=== PATIENT | female | born 1935 | race Caucasian/White ===

== ENCOUNTER 2016-06-18 20:24 | Emergency (ER) | payer MEDICARE, OTHER ==
[~2016-06-18] VITALS: Ht 162.6 cm; Wt 63.5 kg
[~2016-06-18 20:24] MED LIST: AZEL205.2 IN; BENZ100C2 PO; ESTR10TA PO; EZET10TA3 PO; INSU100I13 SQ; INSU100I17 SQ; LEVALBUTER1.25 MG/3 INH; LEVO75TA5 PO; LOSA50TA6 PO; PANT40TA5 PO; POTA10TA12 PO; UMEC1DIS INH; URSO300C3 PO
--- NOTE | 2016-06-18 21:10 | PHYS DOC ---
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 No loss of consciousness. She did have bleeding out of her nose and from the injury on her nose. She does not take a blood thinner. The patient is on oxygen chronically at home for lung disease. She did not have syncope, she just had a mechanical fall. She has no other complaints at this time. Review of Systems Review of Systems Constitutional: Denies fever or chills [] Eyes: Denies change in visual acuity, redness, or eye pain [] HENT: Injury to nose as in history of present illness Respiratory: Chronically oxygen dependent, no complaints today Cardiovascular: Denies chest pain GI: Denies abdominal pain, nausea, vomiting, bloody stools or diarrhea [] : Denies dysuria or hematuria [] Musculoskeletal: Complains of pain to both knees and left elbow from the fall Integument: Denies rash or skin lesions [] Neurologic: Denies headache, focal weakness or sensory changes [] Allergies Allergies Allergies Coded Allergies Type Severity Reaction Last Updated Verified Corticosteroids (Glucocorticoids) Allergy Intermediate HAND SWELLING 09/21/15 Yes Penicillins Allergy Intermediate 09/18/15 Yes Llyvcoe-Log-Wnw Reductase Inhibitor Allergy Intermediate muscle aches 09/18/15 Yes Sulfa (Sulfonamide Antibiotics) Allergy Intermediate 09/18/15 Yes Tetracyclines Allergy Intermediate 09/18/15 Yes amitriptyline Allergy Intermediate 09/18/15 Yes benzonatate Allergy Intermediate 09/18/15 Yes codeine Allergy Intermediate liver 09/18/15 Yes diazepam Allergy Intermediate 09/18/15 Yes hydrochlorothiazide Allergy Intermediate 09/18/15 Yes iodine Allergy Intermediate 09/18/15 Yes meperidine Allergy Intermediate 09/18/15 Yes oxycodone Allergy Intermediate 09/18/15 Yes prednisone Allergy Intermediate HANDS, FEET SWELLING 09/18/15 Yes propoxyphene Allergy Intermediate 09/18/15 Yes triamterene Allergy Intermediate 09/18/15 Yes acetaminophen Adverse Reaction Intermediate 09/18/15 Yes hydrocodone Adverse Reaction Intermediate hallucinations 09/18/15 Yes levofloxacin Adverse Reaction Intermediate dizzy, stomach ache 09/18/15 Yes lisinopril Adverse Reaction Intermediate COUGH 09/18/15 Yes moxifloxacin Adverse Reaction Intermediate 09/18/15 Yes naproxen Adverse Reaction Intermediate liver 09/18/15 Yes prochlorperazine Adverse Reaction Intermediate hallucination 09/18/15 Yes Physical Exam Physical Exam Constitutional: Well developed, well nourished, no acute distress, non-toxic appearance. Alert, mentating normally. HENT: Normocephalic, bilateral external ears normal, oropharynx moist, no oral exudates, no injury to lips or teeth, abrasion over the nose, fresh blood in the left nare, no active bleeding. Unable to visualize septum due to blood in the left [place]. Eyes: conjunctiva normal, no discharge. [] Neck: Normal range of motion, no tenderness, supple, no stridor. [] Skin: Warm, dry, no erythema, no rash. [] Extremities: Left knee with a mild bruise over the patella, both knees without bony tenderness, no joint effusion, no deformity, full range of motion present. Left elbow mildly tender over the proximal ulna, full range of motion, no swelling or bruising, no significant bony tenderness, no clubbing, ROM intact, no edema. [] Neurologic: Alert and oriented X 3, normal motor function, normal sensory function, no focal deficits noted. [] Current Patient Data Vital Signs Vital Signs Date Time Temp Pulse Resp B/P Pulse Ox O2 Delivery O2 Flow Rate FiO2 06/18/16 21:00 97.6 98 18 168/77 93 Nasal Cannula 5 97.6 EKG EKG [] Radiology/Procedures Radiology/Procedures CT scan of the head and maxillofacial interpreted by the radiologist. Head CT negative. Maxillofacial shows a nondisplaced fracture of the left nasal bone, mildly displaced fractures of the right nasal bone. Otherwise negative. Procedure: Repair of nasal laceration by me: 1.5 cm laceration, jagged, over the nasal bridge, was cleaned with hydrogen peroxide. It is hemostatic. It is superficial and oblique. It was repaired with skin adhesive. Good result. Patient tolerated well. [] Course & Med Decision Making Course & Med Decision Making Pertinent Labs and Imaging studies reviewed. (See chart for details) 81-year-old female had a fall at home, her most significant injury appears to be 200 nose. I advised her we will clean up the nasal injury and also get a CT scan to evaluate her nasal bones. She has mild bruising of her left knee, also did injure her right knee and left elbow with no objective clinical findings at this time, I don't believe any x-rays are indicated in those areas and the patient's agreeable to that plan. CT showed nasal bone fractures without significant displacement. The patient blew her nose and cleared it of blood clots and had no further bleeding. Reexam of her nares, no active bleeding, negative septal hematoma bilaterally. I glued her nasal laceration. [] Dragon Disclaimer Dragon Disclaimer This electronic medical record was generated, in whole or in part, using a voice recognition dictation system. Departure Departure Impression: Primary Impression: Facial trauma Additional Impression: Nasal bone fracture Disposition: 01 HOME, SELF-CARE Condition: IMPROVED Referrals: VIRGILIO PALAFOX (PCP) Patient Instructions: Nasal Fracture, [id number] Additional Instructions: For the nose injury, do not apply any medication or bandage. The skin glue will wear off by itself. Apply ice to the nose 15-20 minutes on, 15 minutes off, keep ice on the nose regularly for about 2 days to help limit swelling. Sleep with your head elevated to help limit swelling. Ice to areas of pain and swelling elsewhere. Problem Qualifiers MARIA ISABEL MCCANN MD Jun 18, 2016 21:11
--- NOTE | 2016-06-18 21:46 | RAD ---
Examination: CT head and maxillofacial bones without contrast. History: History of fall, headache, facial pain. COMPARISON None available TECHNIQUE Axial CT images of the head were performed without contrast with axial CT images of the maxillofacial bones performed without contrast.Coronal sagittal reformats were performed. Exposure: One or more of the following dose reduction technique were utilized for this examination: 1. Automated exposure control. 2.Adjustment of MA and /or KV according to patient size. 3. Use of iterative reconstruction technique. Findings : Mild bilateral periventricular white matter hypodensities likely chronic small vessel ischemic disease. No acute intracranial bleed or extra-axial fluid collection identified. The bilateral orbital globes appear intact. The retro-orbital fat is maintained. Mild displaced fractures of the right nasal bone. Nondisplaced fracture of the left nasal bone. The visualized paranasal sinuses, mastoid air cells are clear. The orbital pedroza appear intact. IMPRESSION 1. No acute intracranial findings. 2. Nondisplaced fracture of the left nasal bone. Mild displaced fracture of the right nasal bone. Electronically signed by: Jose Hedrick (Jun 18, 2016 21:44:30)
[2016-06-18 22:00] VITALS: BP 124/61
--- NOTE | 2016-06-19 06:32 | EKG ---
[facility] [address] [place] [address] Test Date: 2016-06-18 Test Time: 20:39:19 Pat Name: MAT HOOKER Department: Room: Gender: F Social Media Project Manager: : 1935 Requested By: MARIA ISABEL MCCANN Order Number: [id number] Reading MD: Madyson Littlejohn Measurements Intervals [place] Rate: 95 P: 61 AL: 142 QRS: 94 QRSD: 76 T: 69 QT: 346 QTc: 438 Interpretive Statements SINUS RHYTHM RIGHTWARD AXIS NO SPECIFIC ECG ABNORMALITIES RI6.01 Compared to ECG 09/17/2015 22:18:08 No significant changes Electronically Signed On 06-23-2016 10:03:24 [employer] by Madyson Littlejohn
== END 2016-06-18 22:20 | disposition home or self-care (01) ==
LOC: ER 20:24
DX: S02.2XXA Fracture of nasal bones, initial encounter for closed fracture (principal); S01.21XA Laceration without foreign body of nose, initial encounter; S80.02XA Contusion of left knee, initial encounter; S50.02XA Contusion of left elbow, initial encounter; E03.9 Hypothyroidism, unspecified; E89.0 Postprocedural hypothyroidism; E11.9 Type 2 diabetes mellitus without complications; E78.00 Pure hypercholesterolemia, unspecified; I10 Essential (primary) hypertension; K21.9 Gastro-esophageal reflux disease without esophagitis; Z99.81 Dependence on supplemental oxygen; Z90.49 Acquired absence of other specified parts of digestive tract; Z88.8 Allergy status to other drugs, medicaments and biological substances; Z88.5 Allergy status to narcotic agent; Z88.0 Allergy status to penicillin; Z88.2 Allergy status to sulfonamides; Z91.041 Radiographic dye allergy status; W01.0XXA Fall on same level from slipping, tripping and stumbling without subsequent striking against object, initial encounter; Y93.89 Activity, other specified; Y92.89 Other specified places as the place of occurrence of the external cause; Y99.8 Other external cause status
CPT/HCPCS: 12011; 70450; 70486; 93005; 99284-25

== ENCOUNTER 2020-11-04 17:22 | Inpatient (IN) | payer MEDICARE ==
[~2020-11-04] VITALS: Ht 162.6 cm; Wt 63.9 kg
[~2020-11-04 17:22] MED LIST changes: +BENZ-8 PO; -BENZ100C2 PO; +EZET10TA20 PO; -EZET10TA3 PO; +LOSA-73 PO; -LOSA50TA6 PO; -PANT40TA5 PO; +PANT40TA77 PO; +URSO300C26 PO; -URSO300C3 PO
[2020-11-04 17:51] VITALS: BP 139/49
[2020-11-04] MEDS ORDERED: POLY15DR20 OP (18:04)
[2020-11-04] MEDS ORDERED: PANT40TA77 PO (18:04)
[2020-11-04] MEDS ORDERED: URSO500T3 PO (18:04)
[2020-11-04] MEDS ORDERED: LACT20SO PO (18:04)
[2020-11-04] MEDS ORDERED: HYDR30CR61 RC (18:04)
[2020-11-04] MEDS ORDERED: INSU100V6 SQ (18:04)
[2020-11-04] MEDS ORDERED: ALBU2.5V5 NEB (18:04)
[2020-11-04] MEDS ORDERED: ASCO500C9 PO (18:04)
[2020-11-04] MEDS ORDERED: CHOL10004 PO (18:04)
[2020-11-04] MEDS ORDERED: TRAM50TA PO (18:04)
[2020-11-04] MEDS ORDERED: SODI30SP NS (18:04)
[2020-11-04] MEDS ORDERED: ONDA4TAB7 PO (18:04)
[2020-11-04] MEDS ORDERED: traMADol 50 MG TABLET PO PRN (18:15)
[2020-11-04] MEDS ORDERED: HYDROCORTISONE 2.5% RECTAL CREAM 30GM TUBE. RC PRN (18:15)
[2020-11-04] MEDS ORDERED: SODIUM CHLORIDE 0.65% NASAL SPRAY 45ML BOTTLE. NS PRN (18:15)
[2020-11-04] MEDS ORDERED: ONDANSETRON ODT 4 MG TAB.RAPDIS. PO PRN (18:30)
[2020-11-04] MEDS ORDERED: POLYVINYL ALCOHOL 1.4% OPHTH SOLUTION 15ML BOTTLE. OU PRN (18:30)
[2020-11-04 19:00] VITALS: BP 91/41
[2020-11-04 19:24] LABS: BASO % 1 % (0-3); EOS # 0.1 x10^3/uL (0.0-0.7); EOS % 3 % (0-3); HEMATOCRIT 31.4 % (36.0-47.0); HEMOGLOBIN 10.5 g/dL (12.0-15.5); LYMPH # 0.8 x10^3/uL (1.0-4.8); LYMPH % 22 % (24-48); MEAN CORPUSCULAR HEMOGLOBIN 35 pg (25-35); MEAN CORPUSCULAR HGB CONC 33 g/dL (31-37); MEAN CORPUSCULAR VOLUME 104 fL (79-100); MONO # 0.3 x10^3/uL (0.0-1.1); MONO % 10 % (0-9); NEUT # 2.2 x10^3/uL (1.8-7.7); NEUT % 64 % (31-73); PLATELET COUNT 115 x10^3/uL (140-400); RED BLOOD COUNT 3.04 x10^6/uL (3.50-5.40); RED CELL DISTRIBUTION WIDTH 14.5 % (11.5-14.5); WHITE BLOOD COUNT 3.4 x10^3/uL (4.0-11.0)
[2020-11-04 19:34] LABS: CALCIUM 7.5 mg/dL (8.5-10.1); CREATININE 1.7 mg/dL (0.6-1.0); GFR 28.7; POTASSIUM 3.9 mmol/L (3.5-5.1)
[2020-11-04 19:40] LABS: ALBUMIN 2.2 g/dL (3.4-5.0); ALBUMIN/GLOBULIN RATIO 0.6 (1.0-1.7); TOTAL BILIRUBIN 0.6 mg/dL (0.2-1.0); TOTAL PROTEIN 6.1 g/dL (6.4-8.2)
[2020-11-04 20:19] LABS: PROTHROMBIN TIME PATIENT 16.3 SEC (11.7-14.0)
[2020-11-04] MEDS: ALBUTEROL SULFATE 2.5 MG/3 ML NEBU. NEB SCH (20:31)
[2020-11-04] MEDS: URSODIOL 300 MG CAPSULE. PO SCH (22:25)
[2020-11-04 23:11] VITALS: BP 92/38
[2020-11-05] VITALS (8 sets, daily range): BP systolic 90–109; BP diastolic 41–46
[2020-11-05] MEDS: ALBUTEROL SULFATE 2.5 MG/3 ML NEBU. NEB SCH ×3 (06:53→20:56)
--- NOTE | 2020-11-05 07:35 | RAD ---
EXAMINATION: CT abdomen and pelvis without IV contrast. INDICATION:85 years, Female, abdominal distention. TECHNIQUE: Axial CT images of the abdomen and pelvis were obtained. Coronal and sagittal reformatted performed. COMPARISON: 10/17/2020. Exposure: One or more of the following individualized dose reduction techniques were utilized for thi s examination: 1. Automated exposure control 2. Adjustment of the mA and/or kV according to patient size 3. Use of iterative reconstruction technique. FINDINGS: LOWER CHEST: Small left pleural effusion. Bibasilar subsegmental atelectasis versus scarring. Bilateral lower lobe s bronchial wall thickening, may reflect infectious/inflammatory bronchiolitis. ABDOMEN/PELVIS: Within limitation of noncontrast exam, Cirrhotic morphology of the liver with enlarged left and caudate lobes with surface irregularity. Tub ular shaped lobulated hypodense lesions in hepatic segment 7, segment 6 and segment 5, the largest me asures approximately 6.2 x 4.6 x 1.9 cm . Additional, 1.3 cm dense lesion in subcapsular hepatic segm ent 6 Cholecystectomy. Biliary ductal dilation. Borderline splenomegaly measures up to 13 cm in length. Ron cified granulomas in the spleen. Diffuse pancreatic atrophy. Lobulated hypodense lesion in the pancre atic neck (series 4 image 20), measures 0.7 x 2.1. Nodular thickening of the left adrenal gland witho ut discrete nodule. No hydronephrosis or nephrolithiasis kidney. Subcentimeter hypodensity in the upp er pole right kidney, too small to characterize. Diffuse gastric and duodenal wall thickening. Wall thickening of the right colon. No bowel dilation. Moderate to large amount of pelvic ascites with diffuse mesenteric edema. Severe aortoiliac atheroscl erotic calcifications without dilation. No pneumoperitoneum. Multiple periportal and portacaval promi nent lymph nodes the largest measures 1.6 cm, likely reactive. Underdistended urinary bladder which l imits evaluation. Uterus is not visualized. MUSCULOSKELETAL: No acute osseous process or suspicious lesion. Multilevel degenerative changes in the spine. Diffuse anasarca. IMPRESSION: Within limitation of noncontrast exam, 1. Cirrhotic morphology of the liver with few indeterminate tubular shaped hypodense lesions in the right hepatic lobe, the largest of which measures up to 6.2 cm. Additional, indeterminate 1.3 cm hypo dense lesion in subcapsular hepatic segment 6. Findings may represent thrombosed hepatic veins and cy st. However, hepatocellular carcinoma cannot be excluded. Recommend MRI with contrast to further eval uate. 2. Lobulated hypodense lesion in the pancreatic neck measuring up to 2.1 cm, may represent pancreati c cysts versus side branch intraductal papillary mucinous neoplasm. This can be further evaluated by the recommended MRI/MRCP. 3. Moderate to large amount of pelvic ascites with diffuse mesenteric edema, worsened since prior ex am. 4. Diffuse gastric, duodenal and right colonic wall thickening, suggesting of portal [id number] olopathy versus infectious/inflammatory process. No bowel dilation. 5. Small left pleural effusion. Bilateral lower lobes bronchial wall thickening may reflect infectio us/inflammatory bronchiolitis. 6. Other chronic/incidental findings, as described above. Electronically signed by: Amado Thrasher MD (11/05/2020 7:33 AM) [facility]
[2020-11-05] MEDS: PANTOPRAZOLE 40 MG TABLET.DR. PO SCH (07:37)
[2020-11-05] MEDS: URSODIOL 300 MG CAPSULE. PO SCH ×2 (08:25→21:56)
[2020-11-05] MEDS: INSULIN LISPRO 300 UNITS/3 ML VIAL. SQ SCH ×3 (08:32→17:21)
[2020-11-05] MEDS ORDERED: LACTULOSE 20 GM/30 ML SOLUTION. PO SCH (09:00)
--- NOTE | 2020-11-05 09:32 | HP ---
ADMIT DATE: 11/04/2020 HISTORY OF PRESENT ILLNESS: The patient is an 85-year-old female patient, a resident at [facility] whom I have seen there yesterday with a complaint of progressive abdominal distention and abdominal pain. She is known to have liver cirrhosis with ascites and has had paracentesis multiple times before at [facility] and therefore a decision was made to admit her directly to [facility] for further evaluation and to have paracentesis to make sure that he does not have spontaneous bacterial peritonitis as she was complaining of abdominal tenderness yesterday, although there was no fever, chills, or rigors. She is known to have episodes of hepatic encephalopathy; however, her ammonia was only 92, which is well within normal range at the [facility] used at [facility]. She is on lactulose 45 mL daily. Her ammonia at one point in time went up to 264 last week. 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 She is known to have type 2 diabetes mellitus, hypertension, hyperlipidemia, chronic kidney disease as well as COPD. PAST SURGICAL HISTORY: Significant for bilateral cataract extraction, appendectomy, cholecystectomy, 3 C-sections, total abdominal hysterectomy and bilateral salpingo-oophorectomy. She has also multiple paracenteses done at [facility]. FAMILY HISTORY: Significant for the fact that her mother has similar disease. She has 8 brothers and 4 sisters. SOCIAL HISTORY: She is and lives with her , currently at [facility] for rehabilitation. She has 2 daughters and 1 son and 1 daughter at the age of 20 in a motor vehicle accident. She had never smoked, does not drink alcohol or use recreational drugs. She used to work at [employer]. ALLERGIES: SHE HAS EXTENSIVE LIST OF ALLERGIES INCLUDING CORTICOSTEROIDS, PENICILLIN, STATIN, SULFA DRUGS, TETRACYCLINE, ACETAMINOPHEN, AMITRIPTYLINE, BENZONATATE, CODEINE, DIAZEPAM, HYDROCHLOROTHIAZIDE, HYDROCODONE, IODIDE, LEVOFLOXACIN, LISINOPRIL, MOXIFLOXACIN, NAPROXEN, PROCHLORPERAZINE. MEDICATIONS: She is currently on the following medication: She is on albuterol sulfate 2.5 mg 3 mL by nebulizer three times a day, tramadol 50 mg every 8 hours, lactulose 30 grams daily, polyvinyl alcohol one drop to both eyes as needed, saline nasal spray 2 sprays to each nostril as needed, ursodiol 500 mg twice a day, ondansetron 4 mg every 6-8 hours, Protonix 40 mg daily. She is on Lantus insulin 8 units at bedtime and Humalog insulin 8 units before meals. She is on hydrocortisone cream applied topically twice a day, vitamin C for ascorbic acid 1000 mg daily, and cholecalciferol 50 mcg daily. PHYSICAL EXAMINATION: GENERAL: On examining her, the patient was pale, somewhat cachectic, but no jaundiced or cyanosed, no lymphadenopathy, no thyromegaly, no jugular venous distention, but mild bilateral lower limb edema. VITAL SIGNS: Her heart rate was 67, blood pressure was 91/41, temperature was 98.3, respiratory rate was 18 and oxygen saturation was 98% on room air. HEAD, EYES, EARS, NOSE, AND THROAT: Normocephalic, atraumatic. NECK: Supple. HEART: Showed normal first and second heart sounds, no gallop or murmur. CHEST: Shows central trachea, equal bilateral chest expansion, air entry, vesicular breath sounds. No crepitation or rhonchi. ABDOMEN: Distended with tenderness mostly in the right lower quadrant. There is no guarding or rigidity. No organomegaly. All hernial orifice intact. Bowel sounds normal. NEUROLOGIC: She is awake, alert, responding appropriately. All cranial nerves intact. She moves extremities without difficulty. She has no flapping tremor. LABORATORY DATA: On arrival showed a white cell count of 3400, hemoglobin 10, hematocrit 31, MCV 104 and platelet count of 115,000. Her prothrombin time was 16.3, INR 1.3. Her serum sodium was 135, potassium 3.9, chloride 105, bicarbonate 18, anion gap of 12, BUN 25, creatinine 1.7. Estimated GFR was 28 mL per minute. Her glucose was 180. Lactic acid was 1.1. Serum calcium was 7.5. Total bilirubin, AST, ALT, alkaline phosphatase were normal. Her ammonia was 44 mmol/L. Total protein was 6.1, albumin was 2.2. ASSESSMENT AND PLAN: The patient was admitted with progressive abdominal distention and abdominal pain and tenderness. She has underlying diagnosis of liver cirrhosis, most likely due to primary biliary cirrhosis. I have arranged for her to have a CT scan of the abdomen and pelvis and consulted the interventional radiologist for paracentesis and send the ascitic fluid for cell count and differential, cytology, fluid culture and sensitivity as well as body fluid for glucose, protein, and to continue on all her other medication. JACQUELYN/KANWAL DR: Es TID: [id number]
--- NOTE | 2020-11-05 09:43 | NUR ---
DUSTY following. Discussed with RN. DUSTY verified pt is a SNF resident at [facility], room air, NPO. Pt having a paracentesis today. Per Kaylah at [facility], pt does not need a COVID test to return. PT/OT being ordered. DUSTY will continue to follow.
--- NOTE | 2020-11-05 10:31 | PDOC2 ---
GI CONSULT Date of Service: DATE: 11/05/20 TIME: 10:30 Reason For Consult: abd pain, ascites HPI: HPI: 85 y/o female sent from [facility] w/ abd pain and distention, concern for SBP. H/o cirrhosis/PBC w/ previous hepatology evaluation at [place] "for years." Had liver biopsy at some point. She doesn't want to go back there. Pt/family report past paracentesis x 1 @ [facility] in September and CT and US. These records are unavailable for review. Apparently issues recently w/ weakness/falls. Throughout our conversation, she also mentions evaluations at [facility] and [facility]. Hyperammonemia at [facility], on lactulose. Imaging now as below w/ cirrhosis, indeterminate hepatic lesions (thrombosed hepatic veins/cysts vs HCC), pancreatic neck lesion (cyst vs IPMN), moderate to large ascites, gastric/duodenal and right colonic wall thickening, small left pleural effusion, possible bronchiolitis. H/o GERD on PPI. No dysphagia. No n/v. ?decreased appetite - unclear details. Some recent constipation and ?urinary retention. Weight fluctuates - hard to decipher what she's describing. Talks about hemorrhoids some - not sure if these are painful or intermittent bleed? Reports past EGD and colonoscopy w/ Dr. Woodward - no significant findings recalled. S/p cholecystectomy. Denies pancreas and PUD history. She talks a lot about unrelated matters. Her son (at bedside) has seen Dr. Randolph in the past. PMH: PMH: PBC, HTN, HLD, DM, CKD, COPD cataract extraction, appendectomy, cholecystectomy, C-sections, hysterectomy w/ BSO, paracentesis, liver biopsy FH: Family History: Other (mother ?PBC) Social History: Smoke: No ALCOHOL: none Drugs: None ROS: GEN: Denies fevers, chills, sweats HEENT: Denies blurred vision, sore throat CV: Denies chest pain RESP: Denies shortness of air, cough GI: Per HPI : hesitancy? ENDO: +fluctuating weight NEURO: +confusion MSK: +weakness +falls SKIN: Denies jaundice, pruritus Vitals: Vitals: Vital Signs Date Time Temp Pulse Resp B/P (MAP) Pulse Ox O2 Delivery O2 Flow Rate FiO2 11/05/20 09:38 68 18 100/43 (62) 99 Room Air 11/05/20 07:00 97.5 97.5 Labs: Labs: Laboratory Tests Test 11/04/20 19:00 11/04/20 19:55 11/04/20 21:23 11/05/20 08:09 White Blood Count 3.4 x10^3/uL (4.0-11.0) Red Blood Count 3.04 x10^6/uL (3.50-5.40) Hemoglobin 10.5 g/dL (12.0-15.5) Hematocrit 31.4 % (36.0-47.0) Mean Corpuscular Volume 104 fL (79-100) Mean Corpuscular Hemoglobin 35 pg (25-35) Mean Corpuscular Hemoglobin Concent 33 g/dL (31-37) Red Cell Distribution Width 14.5 % (11.5-14.5) Platelet Count 115 x10^3/uL (140-400) Neutrophils (%) (Auto) 64 % (31-73) Lymphocytes (%) (Auto) 22 % (24-48) Monocytes (%) (Auto) 10 % (0-9) Eosinophils (%) (Auto) 3 % (0-3) Basophils (%) (Auto) 1 % (0-3) Neutrophils # (Auto) 2.2 x10^3/uL (1.8-7.7) Lymphocytes # (Auto) 0.8 x10^3/uL (1.0-4.8) Monocytes # (Auto) 0.3 x10^3/uL (0.0-1.1) Eosinophils # (Auto) 0.1 x10^3/uL (0.0-0.7) Basophils # (Auto) 0.0 x10^3/uL (0.0-0.2) Sodium Level 135 mmol/L (136-145) Potassium Level 3.9 mmol/L (3.5-5.1) Chloride Level 105 mmol/L (98-107) Carbon Dioxide Level 18 mmol/L (21-32) Anion Gap 12 (6-14) Blood Urea Nitrogen 25 mg/dL (7-20) Creatinine 1.7 mg/dL (0.6-1.0) Estimated GFR (Cockcroft-Gault) 28.7 BUN/Creatinine Ratio 15 (6-20) Glucose Level 180 mg/dL (70-99) Lactic Acid Level 1.1 mmol/L (0.4-2.0) Calcium Level 7.5 mg/dL (8.5-10.1) Total Bilirubin 0.6 mg/dL (0.2-1.0) Aspartate Amino Transf (AST/SGOT) 33 U/L (15-37) Alanine Aminotransferase (ALT/SGPT) 30 U/L (14-59) Alkaline Phosphatase 99 U/L (46-116) Total Protein 6.1 g/dL (6.4-8.2) Albumin 2.2 g/dL (3.4-5.0) Albumin/Globulin Ratio 0.6 (1.0-1.7) Prothrombin Time 16.3 SEC (11.7-14.0) Prothromb Time International Ratio 1.3 (0.8-1.1) Ammonia 44 mcmol/L (11-34) Glucose (Fingerstick) 191 mg/dL (70-99) 127 mg/dL (70-99) Allergies: Coded Allergies: Corticosteroids (Glucocorticoids) (Verified Allergy, Intermediate, HAND SWELLING, 09/21/15) Penicillins (Verified Allergy, Intermediate, 09/18/15) Itgadpx-Rrx-Ovk Reductase Inhibitor (Verified Allergy, Intermediate, muscle aches, 09/18/15) Sulfa (Sulfonamide Antibiotics) (Verified Allergy, Intermediate, 09/18/15) Tetracyclines (Verified Allergy, Intermediate, 09/18/15) amitriptyline (Verified Allergy, Intermediate, 09/18/15) benzonatate (Verified Allergy, Intermediate, 09/18/15) diazepam (Verified Allergy, Intermediate, 09/18/15) hydrochlorothiazide (Verified Allergy, Intermediate, 09/18/15) iodine (Verified Allergy, Intermediate, 09/18/15) meperidine (Verified Allergy, Intermediate, 09/18/15) oxycodone (Verified Allergy, Intermediate, 09/18/15) prednisone (Verified Allergy, Intermediate, HANDS, FEET SWELLING, 09/18/15) hand, feet, swelling propoxyphene (Verified Allergy, Intermediate, 09/18/15) triamterene (Verified Allergy, Intermediate, 09/18/15) acetaminophen (Verified Adverse Reaction, Intermediate, 09/18/15) sleepy codeine (Verified Adverse Reaction, Intermediate, liver, 11/05/20) hydrocodone (Verified Adverse Reaction, Intermediate, hallucinations, 09/18/15) hallucinations levofloxacin (Verified Adverse Reaction, Intermediate, dizzy, stomach ache, 09/18/15) dizzy, stomach ache lisinopril (Verified Adverse Reaction, Intermediate, COUGH, 09/18/15) cough moxifloxacin (Verified Adverse Reaction, Intermediate, 09/18/15) stomach pain naproxen (Verified Adverse Reaction, Intermediate, liver, 09/18/15) prochlorperazine (Verified Adverse Reaction, Intermediate, hallucination, 09/18/15) Medications: Current Medications Medications (Trade) Dose Ordered Sig/Yaya Route PRN Reason Start Time Stop Time Status Last Admin Dose Admin Albuterol Sulfate (Ventolin Neb Soln) 2.5 mg TID NEB 11/04/20 21:00 11/05/20 06:53 Insulin Human Lispro (HumaLOG) 8 units TIDWMEALS SQ 11/05/20 08:00 11/05/20 08:32 Lactulose (Lactulose) 30 gm DAILY PO 11/05/20 09:00 11/05/20 08:25 Pantoprazole Sodium (Protonix) 40 mg DAILYAC PO 11/05/20 07:30 11/05/20 07:37 Ursodiol (Actigall) 300 mg BID PO 11/04/20 21:00 11/05/20 08:25 Imaging: Imaging: CT A/P w/o contrast 1. Cirrhotic morphology of the liver with few indeterminate tubular shaped hypodense lesions in the right hepatic lobe, the largest of which measures up to 6.2 cm. Additional, indeterminate 1.3 cm hypodense lesion in subcapsular hepatic segment 6. Findings may represent thrombosed hepatic veins and cyst. However, hepatocellular carcinoma cannot be excluded. Recommend MRI with contrast to further evaluate. 2. Lobulated hypodense lesion in the pancreatic neck measuring up to 2.1 cm, may represent pancreatic cysts versus side branch intraductal papillary mucinous neoplasm. This can be further evaluated by the recommended MRI/MRCP. 3. Moderate to large amount of pelvic ascites with diffuse mesenteric edema, worsened since prior exam. 4. Diffuse gastric, duodenal and right colonic wall thickening, suggesting of portal [id number]-[id number] versus infectious/inflammatory process. No bowel dilation. 5. Small left pleural effusion. Bilateral lower lobes bronchial wall thickening may reflect infectious/inflammatory bronchiolitis. 6. Other chronic/incidental findings, as described above. PE: GEN: NAD HEENT: Atraumatic, PERRL LUNGS: CTAB HEART: RRR ABD: NABS, soft, some ascites, non-tender EXTREMITY: trace BLE edema SKIN: No rashes, no jaundice NEURO/PSYCH: seems pleasantly confused A/P: A/P: PBC/cirrhosis w/ ascites/abdominal discomfort and encephalopathy - recent paracentesis @ [facility], past hepatology eval @ [facility] Mild leukopenia, macroctyic anemia, thrombocytopenia, mild coagulopathy, hyperammonemia Abnormal CT: indeterminate hepatic lesions, pancreatic neck lesion (cyst vs IPMN), gastric/duodenal and right colonic wall thickening GERD - on PPI CRC screen - colonoscopy years ago ?constipation S/p cholecystectomy CKD -- She indicates ascites and encephalopathy are recent developments. Await paracentesis and fluid studies. Not on diuretics - has CKD. Check additional labs including AFP. Check abd doppler - eval portal vein. Consider outpt MRI - she's not sure she can tolerate due to claustrophobia. Continue lactulose - adjust for 3-4 stools daily. STACIE diet. PPI. Will ask for records from [facility]. JEREMIAS MARY Nov 05, 2020 10:31
--- NOTE | 2020-11-05 13:39 | RAD ---
EXAM: US LIMITED ABDOMINAL DOPPLER 11/05/2020 11:30 AM CLINICAL INDICATION: Cirrhosis, recent onset ascites and elevated ammonia levels. Evaluate portal ve in. COMPARISON: CT abdomen and pelvis 11/04/2020 TECHNIQUE: Grayscale, color, and spectral Doppler ultrasound images of the liver were obtained. FINDINGS: The liver is small and nodular, consistent with cirrhosis. There are multiple simple and m ildly complex, septated cysts, one in the left hepatic lobe measuring 1.6 cm and one in the right hep atic lobe measuring 2.0 cm. No definite solid liver mass. The main portal vein is patent with antegrade flow. Peak systolic velocity is 15.9 cm/s, 13.9 cm/s on 2 different measurements. Left portal vein is patent with peak systolic velocity 19.9 cm/s. Right po rtal vein is patent with peak systolic velocity 12.3 cm/s. Hepatic veins and hepatic arteries were no t assessed. Small volume of ascites, too small to drain. IMPRESSION: 1. Cirrhotic appearance of liver 2. Multiple simple and septated cysts in the liver. 3. No portal vein thrombosis. There is antegrade but slow flow in the main portal vein consistent wit h portal hypertension. 4. Small volume of ascites, too small to drain. Electronically signed by: Denise Luog MD (11/05/2020 1:36 PM) [id number]
[2020-11-05 14:52] LABS: BF SOURCE ASCITES
[2020-11-05 14:53] LABS: BF CLARITY HAZY; BF COLOR STRAW; BF RBC COUNT 250 /cmm (Not Established); BF WBC COUNT 255 /cmm (Not Established)
[2020-11-05] MEDS ORDERED: LEVO88TA51 PO (15:31)
[2020-11-05 16:09] LABS: BF MON % 94 %; BF PMN % 4 %
[2020-11-05 16:10] LABS: BF OTHER % 2 %
--- NOTE | 2020-11-05 16:13 | RAD ---
Procedure: Paracentesis. Clinical Indication: Adult female with abdominal ascites Medications: Local anesthesia only Technique and Findings: Following informed consent, the patient was prepped and draped in the usual s terile fashion. 2% lidocaine was used to achieve local anesthesia over the right upper quadrant of th e abdomen. Ultrasound interrogation of the abdomen was performed, and demonstrated free ascites. A sm all skin incision was made and a Jrgr-U-Spwqmxsc catheter was advanced under ultrasound guidance into the peritoneal cavity. 0.7 liters of thin carmela ascites was then removed. The catheter was removed a nd hemostasis was readily achieved with manual compression. The patient tolerated the procedure well and left the radiology department in stable condition. Impression: 1. Paracentesis as described. Electronically signed by: Daniel Light MD (11/05/2020 4:11 PM) [id number]
[2020-11-05] MEDS: ASCORBIC ACID 1,000 MG TABLET PO SCH (17:17)
[2020-11-05] MEDS: CHOLECALCIFEROL (VITAMIN D3) 1,000 UNIT TABLET PO SCH (17:17)
[2020-11-05 20:18] LABS: AFPT MARKER 2.4 ng/mL (0.0-8.3)
[2020-11-06 03:00] VITALS: BP 96/48
[2020-11-06] MEDS: LEVOTHYROXINE 88 MCG TABLET PO SCH (06:12)
[2020-11-06] MEDS: ALBUTEROL SULFATE 2.5 MG/3 ML NEBU. NEB SCH ×3 (07:45→20:34)
[2020-11-06] MEDS: INSULIN LISPRO 300 UNITS/3 ML VIAL. SQ SCH ×3 (08:00→17:14)
[2020-11-06 09:06] VITALS: BP 95/47
[2020-11-06] MEDS: LACTULOSE 20 GM/30 ML SOLUTION. PO SCH ×2 (09:53→21:16)
[2020-11-06] MEDS: URSODIOL 300 MG CAPSULE. PO SCH ×2 (09:53→21:16)
[2020-11-06] MEDS: PANTOPRAZOLE 40 MG TABLET.DR. PO SCH (09:54)
[2020-11-06 11:00] VITALS: BP 99/31
--- NOTE | 2020-11-06 14:17 | PDOC ---
Date of Service: DATE: 11/06/20 TIME: 14:15 Subjective: Subjective: No SBP on paracentesis fluid Abd sono with: 1. Cirrhotic appearance of liver 2. Multiple simple and septated cysts in the liver. 3. No portal vein thrombosis. There is antegrade but slow flow in the main portal vein consistent with portal hypertension. 4. Small volume of ascites, too small to drain. Electronically signed by: Denise Lugo MD (11/05/2020 1:36 PM) [id number] Objective: Vital Signs: Vital Signs Date Time Temp Pulse Resp B/P (MAP) Pulse Ox O2 Delivery O2 Flow Rate FiO2 11/06/20 11:00 97.5 66 17 99/31 (53) 98 Room Air 97.5 Labs: Laboratory Tests Test 11/05/20 17:00 11/05/20 19:56 11/06/20 07:52 11/06/20 12:21 Glucose (Fingerstick) 185 mg/dL (70-99) 115 mg/dL (70-99) 129 mg/dL (70-99) 211 mg/dL (70-99) Physical Exam: Physical Exam: PE: GEN: NAD HEENT: Atraumatic, PERRL LUNGS: CTAB HEART: RRR ABD: NABS, soft, some ascites, non-tender EXTREMITY: trace BLE edema SKIN: No rashes, no jaundice NEURO/PSYCH: AAO Assessment & Plan: Assessment : A/P: A/P: PBC/cirrhosis w/ ascites/abdominal discomfort and encephalopathy - recent paracentesis @ [facility], past hepatology eval @ [facility] Mild leukopenia, macroctyic anemia, thrombocytopenia, mild coagulopathy, hyperammonemia Abnormal CT: indeterminate hepatic lesions, pancreatic neck lesion (cyst vs IPMN), gastric/duodenal and right colonic wall thickening GERD - on PPI CRC screen - colonoscopy years ago ?constipation S/p cholecystectomy CKD Plan: -- She indicates ascites and encephalopathy are recent developments. Check ammonia tomorrow No SBP on fluid studies Not on diuretics - has CKD. Check additional labs including AFP. Check abd doppler - eval portal vein. Consider outpt MRI - she's not sure she can tolerate due to claustrophobia. Continue lactulose - adjust for 3-4 stools daily. STACIE diet. PPI. Will ask for records from [facility]. Justicifation of Admission Dx: Justifications for Admission: Justification of Admission Dx: Yes MECHELLE GOOD MD Nov 06, 2020 14:17
[2020-11-06 15:00] VITALS: BP 96/46
[2020-11-06] MEDS: ASCORBIC ACID 1,000 MG TABLET PO SCH (17:09)
[2020-11-06] MEDS: CHOLECALCIFEROL (VITAMIN D3) 1,000 UNIT TABLET PO SCH (17:09)
[2020-11-06 19:00] VITALS: BP 103/64
--- NOTE | 2020-11-06 21:29 | PN ---
DATE: 11/06/2020 SUBJECTIVE: The patient is resting, slightly propped up in bed, in no apparent distress, awake, alert. On questioning her, she stated that she is feeling somewhat better, although she continued to have pain in her left upper quadrant. Denied any nausea or vomiting. She has not had any bowel movement for the last 2 days. PHYSICAL EXAMINATION: GENERAL: When I examined her, she was pale, but not jaundiced, cyanosed, no thyromegaly. No jugular venous distention. No limb edema. VITAL SIGNS: Her heart rate was 58, blood pressure was 96/48, temperature was 98.4, respiratory rate was 17 and oxygen saturation was 96%. HEAD, EYES, EARS, NOSE AND THROAT: Normocephalic, atraumatic. NECK: Supple. HEART: Showed normal first and second heart sounds, no gallop, rub or murmur. CHEST: Clear to auscultation, no crepitation or rhonchi. ABDOMEN: Distended, soft, nontender. NEUROLOGIC: She is awake, alert, responding appropriately. All cranial nerves intact. She moves extremities without difficulty. LABORATORY DATA: Her blood sugars seem to be reasonably controlled. Her serum iron, TIBC and iron saturation all are consistent with replete iron stores. Her vitamin B12 is 791. Her alpha fetoprotein was only 2.4 ng/mL; however, her CA 19-9 antigen still pending. The ascitic fluid was straw colored hazy, the fluid nucleated cells 255 of which 94% were mononuclear and 4% were polymorphonuclear, about 250 RBCs and the body fluid glucose and protein are still pending at the time of this dictation. Her abdominal ascitic fluid Gram stain showed no organisms seen and no polymorphonuclear cells were seen and there is no growth so far. ASSESSMENT: Abdominal distention and abdominal pain. The patient has had ultrasound-guided paracentesis and about 700 mL of serous fluid were obtained, were sent for cell count, cytology, Gram stain, culture and sensitivity as well as protein and glucose. Her CT scan also suggests some abnormal finding on the liver concerning for hepatocellular carcinoma; however, her alpha fetoprotein is negative. The abdominal ultrasound showed no evidence of portal vein thrombosis. The patient has multiple other medical problems include type 2 diabetes mellitus, hypertension, hyperlipidemia, chronic kidney disease as well as chronic obstructive pulmonary disease. 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 PLAN: My plan is to increase her lactulose as she has not had bowel movement for the last 2 days and consult Physical and Occupational Therapy. Await the results of the lab work as well as culture and sensitivity, although bacterial peritonitis is unlikely given that most of the nucleated cells are lymphocytes rather than polymorphonuclear leukocytes. CRISTHIAN/LC DR: Es TID: [id number]
[2020-11-06 23:00] VITALS: BP 89/40
[2020-11-07 03:00] VITALS: BP 109/42
[2020-11-07 05:05] LABS: HEMATOCRIT 29.3 % (36.0-47.0); HEMOGLOBIN 9.8 g/dL (12.0-15.5); RED BLOOD COUNT 2.85 x10^6/uL (3.50-5.40); RED CELL DISTRIBUTION WIDTH 14.9 % (11.5-14.5); WHITE BLOOD COUNT 4.2 x10^3/uL (4.0-11.0)
[2020-11-07 05:25] LABS: ALBUMIN 2.1 g/dL (3.4-5.0); ALBUMIN/GLOBULIN RATIO 0.6 (1.0-1.7); CALCIUM 7.4 mg/dL (8.5-10.1); CREATININE 1.4 mg/dL (0.6-1.0); GFR 35.9; POTASSIUM 3.9 mmol/L (3.5-5.1); TOTAL BILIRUBIN 0.5 mg/dL (0.2-1.0); TOTAL PROTEIN 5.6 g/dL (6.4-8.2)
[2020-11-07] MEDS: LEVOTHYROXINE 88 MCG TABLET PO SCH (06:03)
[2020-11-07 07:00] VITALS: BP 91/36
[2020-11-07] MEDS: ALBUTEROL SULFATE 2.5 MG/3 ML NEBU. NEB SCH ×3 (07:30→20:01)
[2020-11-07] MEDS: PANTOPRAZOLE 40 MG TABLET.DR. PO SCH (08:36)
[2020-11-07] MEDS: URSODIOL 300 MG CAPSULE. PO SCH ×2 (08:36→20:56)
[2020-11-07] MEDS: LACTULOSE 20 GM/30 ML SOLUTION. PO SCH ×5 (08:38→20:56)
[2020-11-07] MEDS: INSULIN LISPRO 300 UNITS/3 ML VIAL. SQ SCH ×2 (08:53→17:00)
[2020-11-07] MEDS ORDERED: ONDANSETRON PF 4 MG/2 ML VIAL. IVP PRN (10:00)
[2020-11-07] MEDS ORDERED: fentaNYL PF VIAL 100 MCG/2 ML VIAL IVP PRN (10:00)
--- NOTE | 2020-11-07 10:44 | PDOC2 ---
PEDROCHIDI Maximiliano JEWELRY MOLD MAKER 11/07/20 1044: CONSULT Date of Consult Date of Consult DATE: 11/07/20 TIME: 10:37 Reason for Consult Reason for Consult: ?pancreatic neoplasm Referring Physician Referring Physician: Dr Boothe Identification/Chief Complaint Chief Complaint distention Source Source: Chart review, Patient History of Present Illness Reason for Visit: Patient with known PBC cirrhosis admitted with worsening abdominal distention and abdominal pain Recent admission at [facility] for fall CT with cirrhosis, indeterminate hepatic lesions (thrombosed hepatic veins/cysts vs HCC), pancreatic neck lesion (cyst vs IPMN), moderate to large ascites, gastric/duodenal and right colonic wall thickening, small left pleural effusion, possible bronchiolitis. Does not want to go back to , unhappy with care there Past Medical History Cardiovascular: HTN, Hyperlipidemia Pulmonary: COPD, Other CENTRAL NERVOUS SYSTEM: Periperal neuropathy, Other GI: GERD, Other Hepatobiliary: Other Psych: No pertinent hx Musculoskeletal: low back pain, Osteoarthritis Rheumatologic: No pertinent hx Renal/: Chronic renal insuff Endocrine: Diabetes, Hypothyroidism Past Surgical History Past Surgical History: Appendectomy, Cholecystectomy, Tonsillectomy, Hysterectomy, Other Family History Family History: Heart Disease Social History No ALCOHOL: none Drugs: None Lives: with Family Current Medications Current Medications Current Medications Albuterol Sulfate (Ventolin Neb Soln) 2.5 mg TID NEB Last administered on 11/07/20at 07:30; Start 11/04/20 at 21:00 Vitamin D (Vitamin D3) 2,000 unit DAILYWSUP PO Last administered on 11/06/20at 17:09; Start 11/05/20 at 17:00 Hydrocortisone (Proctosol-Hc) 30 sami PRN BID PRN RC rectal pain; Start 11/04/20 at 18:15 Insulin Human Lispro (HumaLOG) 8 units TIDWMEALS SQ Last administered on 11/07/20at 08:53; Start 11/05/20 at 08:00 Lactulose (Lactulose) 30 gm DAILY PO Last administered on 11/05/20at 08:25; Start 11/05/20 at 09:00; Stop 11/06/20 at 09:11; Status DC Pantoprazole Sodium (Protonix) 40 mg DAILYAC PO Last administered on 11/07/20at 08:36; Start 11/05/20 at 07:30 Sodium Chloride (Saline Mist Nasal) 1 sami PRN DAILY PRN NS CONGESTION; Start 11/04/20 at 18:15 Tramadol HCl (Ultram) 50 mg PRN Q8HRS PRN PO PAIN Last administered on 11/07/20at 08:37; Start 11/04/20 at 18:15 Ascorbic Acid (Vitamin C) 1,000 mg DAILYWSUP PO Last administered on 11/06/20at 17:09; Start 11/05/20 at 17:00 Ondansetron HCl (Zofran Odt) 4 mg PRN Q8HRS PRN PO NAUSEA/VOMITING; Start 11/04/20 at 18:30 Glycerin/ Hypromellose/ Polyethylene (Artificial Tears) 1 drop PRN Q15MIN PRN OU DRY EYE; Start 11/04/20 at 18:30 Ursodiol (Actigall) 300 mg BID PO Last administered on 11/07/20at 08:36; Start 11/04/20 at 21:00 Levothyroxine Sodium (Synthroid) 88 mcg DAILY06 PO Last administered on 11/07/20at 06:03; Start 11/06/20 at 06:00 Lactulose (Lactulose) 30 gm BID PO Last administered on 11/07/20at 08:38; Start 11/06/20 at 09:30; Stop 11/07/20 at 09:57; Status DC Lactulose (Lactulose) 30 gm QID PO ; Start 11/07/20 at 10:00 Ondansetron HCl (Zofran) 4 mg PRN Q6HRS PRN IVP NAUSEA/VOMITING; Start 11/07/20 at 10:00 Fentanyl Citrate (Fentanyl 2ml Vial) 50 mcg PRN Q4HRS PRN IVP PAIN; Start 11/07/20 at 10:00 Active Scripts Active Reported Levo-T (Levothyroxine Sodium) 88 Mcg Tablet 1 Tab PO DAILY 30 Days Zofran (Ondansetron Hcl) 4 Mg Tablet 1 Tab PO PRN Q6-8HRS Vitamin D3 (Vitamin D) 25 Mcg Tablet 50 Mcg PO DAILYWSUP 1,000 UNITS = 25 MCG Ok Forte (Ursodiol) 500 Mg Tablet 1 Tab PO BID 30 Days Tramadol Hcl 50 Mg Tablet 50 Mg PO PRN Q8HRS PRN Saline Nasal Hartshorn (Sodium Chloride) 30 Ml Hartshorn 2 Hartshorn NS PRN DAILY PRN Polyvinyl Alcohol 15 Ml Drops 15 Ml OP PRN Q15MIN PRN Protonix (Pantoprazole Sodium) 40 Mg Tablet.dr 40 Mg PO DAILYAC Lactulose 20 Gm/30 Ml Solution 30 Gm PO DAILY Anusol-Hc (Hydrocortisone) 30 Gm Cream..g. 30 Gm RC PRN BID PRN Humalog (Insulin Lispro) 100 Unit/1 Ml Vial 8 Unit SQ TIDWMEALS Vitamin C (Ascorbic Acid) 500 Mg Capsule 1,000 Mg PO DAILYWSUP Albuterol Sulfate Neb Soln (Albuterol Sulfate) 2.5 Mg/3 Ml Vial.neb 2.5 Mg NEB TID Lantus Solostar (Insulin Glargine,Hum.rec.anlog) 100 Unit/1 Ml Insuln.pen 8 Units SQ HS Allergies Allergies: Coded Allergies: Corticosteroids (Glucocorticoids) (Verified Allergy, Intermediate, HAND SWELLING, 09/21/15) Penicillins (Verified Allergy, Intermediate, 09/18/15) Sulfa (Sulfonamide Antibiotics) (Verified Allergy, Intermediate, 09/18/15) Tetracyclines (Verified Allergy, Intermediate, 09/18/15) amitriptyline (Verified Allergy, Intermediate, 09/18/15) benzonatate (Verified Allergy, Intermediate, 09/18/15) diazepam (Verified Allergy, Intermediate, 09/18/15) hydrochlorothiazide (Verified Allergy, Intermediate, 09/18/15) iodine (Verified Allergy, Intermediate, 09/18/15) meperidine (Verified Allergy, Intermediate, 09/18/15) oxycodone (Verified Allergy, Intermediate, 09/18/15) prednisone (Verified Allergy, Intermediate, HANDS, FEET SWELLING, 11/07/20) propoxyphene (Verified Allergy, Intermediate, 09/18/15) triamterene (Verified Allergy, Intermediate, 09/18/15) Nafovpo-Fjs-Gub Reductase Inhibitor (Verified Adverse Reaction, Intermediate, muscle aches, 11/07/20) acetaminophen (Verified Adverse Reaction, Intermediate, 09/18/15) sleepy codeine (Verified Adverse Reaction, Intermediate, liver, 11/05/20) hydrocodone (Verified Adverse Reaction, Intermediate, hallucinations, 11/07/20) levofloxacin (Verified Adverse Reaction, Intermediate, dizzy, stomach ache, 11/07/20) lisinopril (Verified Adverse Reaction, Intermediate, COUGH, 11/07/20) moxifloxacin (Verified Adverse Reaction, Intermediate, 09/18/15) stomach pain naproxen (Verified Adverse Reaction, Intermediate, liver, 09/18/15) prochlorperazine (Verified Adverse Reaction, Intermediate, hallucination, 09/18/15) ROS General: YES: Fatigue; No: Chills PSYCHOLOGICAL ROS: No: Anxiety, Depression Eyes: No Blurry vision, No Double vision HEENT: No: Heacaches, Sore Throat Hematological and Lymphatic: YES: Bleeding Problems; No: Blood Clots Respiratory: No: Cough, Shortness of breath Cardiovascular: No Chest Pain, No Palpitations Gastrointestinal: Yes Nausea, Yes Vomiting Genitourinary: No Dysuria, No Retention Musculoskeletal: Yes Muscular Weakness; No Joint Pain Neurological: Yes Impaired Coord/balance; No Numbness/Tingling Skin: No Pruritus, No Rash Physical Exam General: Cooperative, No acute distress HEENT: Atraumatic, PERRLA Lungs: Clear to auscultation, Normal air movement Heart: Regular rate, Normal S1, Normal S2 Abdomen: Soft, No tenderness, Other (acsites ) Extremities: No clubbing, No cyanosis Skin: No rashes, No breakdown Neuro: Normal speech, Sensation intact Psych/Mental Status: Mental status NL, Mood NL MUSCULOSKELETAL: No deformity, No swelling Vitals VITALS Vital Signs Date Time Temp Pulse Resp B/P (MAP) Pulse Ox O2 Delivery O2 Flow Rate FiO2 11/07/20 08:37 20 96 Room Air 11/07/20 07:00 98.2 62 91/36 (54) 98.2 Labs Labs Laboratory Tests Test 11/05/20 11:39 11/05/20 12:55 11/05/20 17:00 11/05/20 19:56 Glucose (Fingerstick) 147 mg/dL (70-99) 185 mg/dL (70-99) 115 mg/dL (70-99) Iron Level 61 ug/dL (50-170) Total Iron Binding Capacity 214 ug/dL (250-450) Iron Saturation 29 % (15-34) Tumor Marker Alpha Fetoprotein 2.4 ng/mL (0.0-8.3) CA 19-9 Antigen 629 U/mL (0-35) Vitamin B12 Level 791 pg/mL (247-911) Test 11/06/20 07:52 11/06/20 12:21 11/06/20 16:54 11/06/20 19:43 Glucose (Fingerstick) 129 mg/dL (70-99) 211 mg/dL (70-99) 190 mg/dL (70-99) 92 mg/dL (70-99) Test 11/06/20 23:00 11/07/20 04:30 Glucose (Fingerstick) 179 mg/dL (70-99) White Blood Count 4.2 x10^3/uL (4.0-11.0) Red Blood Count 2.85 x10^6/uL (3.50-5.40) Hemoglobin 9.8 g/dL (12.0-15.5) Hematocrit 29.3 % (36.0-47.0) Mean Corpuscular Volume 103 fL (79-100) Mean Corpuscular Hemoglobin 35 pg (25-35) Mean Corpuscular Hemoglobin Concent 34 g/dL (31-37) Red Cell Distribution Width 14.9 % (11.5-14.5) Platelet Count 115 x10^3/uL (140-400) Sodium Level 136 mmol/L (136-145) Potassium Level 3.9 mmol/L (3.5-5.1) Chloride Level 106 mmol/L (98-107) Carbon Dioxide Level 20 mmol/L (21-32) Anion Gap 10 (6-14) Blood Urea Nitrogen 23 mg/dL (7-20) Creatinine 1.4 mg/dL (0.6-1.0) Estimated GFR (Cockcroft-Gault) 35.9 BUN/Creatinine Ratio 16 (6-20) Glucose Level 182 mg/dL (70-99) Calcium Level 7.4 mg/dL (8.5-10.1) Total Bilirubin 0.5 mg/dL (0.2-1.0) Aspartate Amino Transf (AST/SGOT) 29 U/L (15-37) Alanine Aminotransferase (ALT/SGPT) 25 U/L (14-59) Alkaline Phosphatase 96 U/L (46-116) Ammonia 101 mcmol/L (11-34) Total Protein 5.6 g/dL (6.4-8.2) Albumin 2.1 g/dL (3.4-5.0) Albumin/Globulin Ratio 0.6 (1.0-1.7) Lipase 146 U/L (73-393) Laboratory Tests Test 11/06/20 12:21 11/06/20 16:54 11/06/20 19:43 11/06/20 23:00 Glucose (Fingerstick) 211 mg/dL (70-99) 190 mg/dL (70-99) 92 mg/dL (70-99) 179 mg/dL (70-99) Test 11/07/20 04:30 White Blood Count 4.2 x10^3/uL (4.0-11.0) Red Blood Count 2.85 x10^6/uL (3.50-5.40) Hemoglobin 9.8 g/dL (12.0-15.5) Hematocrit 29.3 % (36.0-47.0) Mean Corpuscular Volume 103 fL (79-100) Mean Corpuscular Hemoglobin 35 pg (25-35) Mean Corpuscular Hemoglobin Concent 34 g/dL (31-37) Red Cell Distribution Width 14.9 % (11.5-14.5) Platelet Count 115 x10^3/uL (140-400) Sodium Level 136 mmol/L (136-145) Potassium Level 3.9 mmol/L (3.5-5.1) Chloride Level 106 mmol/L (98-107) Carbon Dioxide Level 20 mmol/L (21-32) Anion Gap 10 (6-14) Blood Urea Nitrogen 23 mg/dL (7-20) Creatinine 1.4 mg/dL (0.6-1.0) Estimated GFR (Cockcroft-Gault) 35.9 BUN/Creatinine Ratio 16 (6-20) Glucose Level 182 mg/dL (70-99) Calcium Level 7.4 mg/dL (8.5-10.1) Total Bilirubin 0.5 mg/dL (0.2-1.0) Aspartate Amino Transf (AST/SGOT) 29 U/L (15-37) Alanine Aminotransferase (ALT/SGPT) 25 U/L (14-59) Alkaline Phosphatase 96 U/L (46-116) Ammonia 101 mcmol/L (11-34) Total Protein 5.6 g/dL (6.4-8.2) Albumin 2.1 g/dL (3.4-5.0) Albumin/Globulin Ratio 0.6 (1.0-1.7) Lipase 146 U/L (73-393) Assessment/Plan Assessment/Plan PBC cirrhosis, ascites will have Dr Bustillo review CT IVIS BUSTILLO MD 11/07/201911: CONSULT Assessment/Plan Assessment/Plan Pt seen and examined. Agree with Ms. Lawrence's note. Pt with c/o bloating abd soft, distended pt prohibitive surgical candidate. would favor w/u and treatment per GI. Thanks for consult! CHIDI LAWRENCE JEWELRY MOLD MAKER Nov 07, 2020 10:44 IVIS BUSTILLO MD Nov 07, 2020 19:12
[2020-11-07 11:00] VITALS: BP 109/52
[2020-11-07] MEDS ORDERED: DEXTROSE 50% 25 GM / 50ML DISP.SYRIN. IV PRN (12:15)
--- NOTE | 2020-11-07 12:49 | PN ---
DATE: 11/07/2020 SUBJECTIVE: The patient is sitting slightly propped up in bed, complaining of epigastric pain that goes through and through to the back. She also had some nausea and vomiting. Her CA 19-9 is elevated at 629, normal range 0-35 and this together with the finding on the CT scan indicate that probably she might have pancreatic cancer as the patient has lobulated hypodense lesion in the pancreatic neck measuring 0.7 x 2.1 and nodular thickening of the left adrenal gland. The finding in the pancreas may represent pancreatic cyst versus side branch intraductal papillary mucinous neoplasm. This can be further evaluated by the recommended MRI, MRCP whether there is a superimposed pancreatitis. Because of the severity of pain, I ordered serum lipase to be done stat this morning. PHYSICAL EXAMINATION: GENERAL: When I examined her, she was pale, not jaundiced, cyanosed, no lymphadenopathy, no thyromegaly, no jugular venous distention. No lower limb edema. VITAL SIGNS: Her heart rate was 62, blood pressure was 91/36, temperature was 98.2, respiratory rate was 17 and oxygen saturation was 96%. HEAD, EYES, EARS, NOSE AND THROAT: Normocephalic, atraumatic. NECK: Supple. HEART: Showed normal first and second heart sounds, no gallop or murmur. CHEST: Shows central trachea, equal bilateral chest expansion, air entry. Vesicular breath sounds. No crepitation or rhonchi. ABDOMEN: Distended, soft, nontender, no guarding or rigidity. No organomegaly. All hernial orifice intact. Bowel sounds normal. NEUROLOGIC: She is awake, alert, responding appropriately. All cranial nerves intact. She moves extremities without difficulty. Her intake over the last 24 and output are incompletely recorded. LABORATORY DATA: Her lab work as of this morning showed a serum sodium 136, potassium 3.9, chloride 106, bicarbonate 20, anion gap of 10, BUN 23, creatinine 1.4. Estimated GFR was 36 mL per minute. Her glucose 182, calcium was 7.4. Total bilirubin, AST, ALT, alkaline phosphatase were normal. Serum ammonia is up to 101, total protein was 5.6, albumin was 2.1. Her white cell count was 4200, hemoglobin 10, hematocrit 29, MCV 103 and platelet count of 115,000. Her ascitic fluid is inconsistent with peritonitis. ASSESSMENT: The patient continues to complain of abdominal pain with elevation of her CA 19-9 and the findings of the CT scan raised the possibility that she might have pancreatic neoplasm. She has obviously liver cirrhosis with portal hypertension, ascites. Ascitic fluid testing was negative for peritonitis. The patient has multiple other medical problems including: A. Hypertension. B. Hyperlipidemia. C. Type 2 diabetes mellitus. D. Chronic kidney disease. E. chronic obstructive pulmonary disease. I did start her on Zofran. She has been nauseous and also fentanyl for pain. Increase her lactulose to 45 mL 4 times a day as her ammonia is going up. Once we have the serum lipase and if its high, we might have to keep her n.p.o. and start her on TPN for now. Her records from [facility] are available in her chart. JACQUELYN/[facility] [place]: JACQUELYN/sarthak TID: [id number]
--- NOTE | 2020-11-07 14:55 | PDOC ---
Date of Service: DATE: 11/07/20 TIME: 14:53 Subjective: Subjective: Ammonia up to 101 AFP nomral CA 19-9 elevated to 629 Objective: Vital Signs: Vital Signs Date Time Temp Pulse Resp B/P (MAP) Pulse Ox O2 Delivery O2 Flow Rate FiO2 11/07/20 11:00 97.8 68 17 109/52 (71) 95 Room Air 97.8 Labs: Laboratory Tests Test 11/06/20 16:54 11/06/20 19:43 11/06/20 23:00 11/07/20 04:30 Glucose (Fingerstick) 190 mg/dL (70-99) 92 mg/dL (70-99) 179 mg/dL (70-99) White Blood Count 4.2 x10^3/uL (4.0-11.0) Red Blood Count 2.85 x10^6/uL (3.50-5.40) Hemoglobin 9.8 g/dL (12.0-15.5) Hematocrit 29.3 % (36.0-47.0) Mean Corpuscular Volume 103 fL (79-100) Mean Corpuscular Hemoglobin 35 pg (25-35) Mean Corpuscular Hemoglobin Concent 34 g/dL (31-37) Red Cell Distribution Width 14.9 % (11.5-14.5) Platelet Count 115 x10^3/uL (140-400) Sodium Level 136 mmol/L (136-145) Potassium Level 3.9 mmol/L (3.5-5.1) Chloride Level 106 mmol/L (98-107) Carbon Dioxide Level 20 mmol/L (21-32) Anion Gap 10 (6-14) Blood Urea Nitrogen 23 mg/dL (7-20) Creatinine 1.4 mg/dL (0.6-1.0) Estimated GFR (Cockcroft-Gault) 35.9 BUN/Creatinine Ratio 16 (6-20) Glucose Level 182 mg/dL (70-99) Calcium Level 7.4 mg/dL (8.5-10.1) Total Bilirubin 0.5 mg/dL (0.2-1.0) Aspartate Amino Transf (AST/SGOT) 29 U/L (15-37) Alanine Aminotransferase (ALT/SGPT) 25 U/L (14-59) Alkaline Phosphatase 96 U/L (46-116) Ammonia 101 mcmol/L (11-34) Total Protein 5.6 g/dL (6.4-8.2) Albumin 2.1 g/dL (3.4-5.0) Albumin/Globulin Ratio 0.6 (1.0-1.7) Lipase 146 U/L (73-393) Test 11/07/20 11:37 Glucose (Fingerstick) 170 mg/dL (70-99) Physical Exam: Physical Exam: GEN: NAD HEENT: OP clear CV: S1S2 without murmurs, rubs, or gallops RESP: CTAB without wheezing, rhonchi, or crackles ABD: NABS, SNT/ND EXT: No edema NEURO: AAO x 3 Assessment & Plan: Assessment : A/P: A/P: PBC/cirrhosis w/ ascites/abdominal discomfort and encephalopathy - recent paracentesis @ [facility], past hepatology eval @ [facility] Mild leukopenia, macroctyic anemia, thrombocytopenia, mild coagulopathy, hyperammonemia Abnormal CT: indeterminate hepatic lesions, pancreatic neck lesion (cyst vs IPMN), gastric/duodenal and right colonic wall thickening GERD - on PPI CRC screen - colonoscopy years ago ?constipation S/p cholecystectomy CKD Plan: -- She indicates ascites and encephalopathy are recent developments. Ammonia up to 101 Not on diuretics - has CKD. AFP nomral with elevated CA 19-9 Check abd doppler - eval portal vein. Consider outpt MRI - she's not sure she can tolerate due to claustrophobia. Continue lactulose - adjust for 3-4 stools daily. STACIE diet. PPI. Justicifation of Admission Dx: Justifications for Admission: Justification of Admission Dx: Yes MECHELLE GOOD MD Nov 07, 2020 14:55
[2020-11-07 15:00] VITALS: BP 107/43
--- NOTE | 2020-11-07 17:28 | NUR ---
Nurse's note: The patient had an episode of vomiting previously ingested food this morning. Also complained of upper abdominal pain, prn med given with partial relief. She requested 4 units of insulin except 8 units as order stating that her food intake in the hospital is less than what she eats at home; requesting sliding scale. Dr. Boothe notified
[2020-11-07] MEDS: ASCORBIC ACID 1,000 MG TABLET PO SCH (18:24)
[2020-11-07] MEDS: CHOLECALCIFEROL (VITAMIN D3) 1,000 UNIT TABLET PO SCH (18:24)
[2020-11-07 19:00] VITALS: BP 116/52
[2020-11-07 23:00] VITALS: BP 104/48
[2020-11-08 03:00] VITALS: BP 101/50
[2020-11-08] MEDS: LEVOTHYROXINE 88 MCG TABLET PO SCH (06:16)
[2020-11-08 07:00] VITALS: BP 131/47
[2020-11-08 07:29] LABS: ALBUMIN 2.1 g/dL (3.4-5.0); ALBUMIN/GLOBULIN RATIO 0.6 (1.0-1.7); CALCIUM 7.2 mg/dL (8.5-10.1); CREATININE 1.6 mg/dL (0.6-1.0); GFR 30.8; POTASSIUM 3.8 mmol/L (3.5-5.1); TOTAL BILIRUBIN 0.8 mg/dL (0.2-1.0); TOTAL PROTEIN 5.6 g/dL (6.4-8.2)
[2020-11-08] MEDS: ALBUTEROL SULFATE 2.5 MG/3 ML NEBU. NEB SCH ×3 (08:39→19:41)
[2020-11-08] MEDS: PANTOPRAZOLE 40 MG TABLET.DR. PO SCH (09:26)
[2020-11-08] MEDS: LACTULOSE 20 GM/30 ML SOLUTION. PO SCH ×2 (09:26→22:08)
[2020-11-08] MEDS: URSODIOL 300 MG CAPSULE. PO SCH ×2 (09:26→22:07)
[2020-11-08] MEDS: INSULIN LISPRO 300 UNITS/3 ML VIAL. SQ SCH ×3 (09:38→17:33)
--- NOTE | 2020-11-08 10:21 | PN ---
DATE: 11/08/2020 SUBJECTIVE: The patient is resting, slightly propped up in bed, in no apparent distress. Her abdominal pain is somewhat less than yesterday. She has tolerated her breakfast and has had multiple bowel movements last night and this morning as we increased her lactulose to 4 times a day as her ammonia has risen to 101. PHYSICAL EXAMINATION: GENERAL: When I examined her this morning, she looked well and was clearly in no apparent respiratory distress. No pallor, jaundice, cyanosis, or thyromegaly. No jugular venous distention. No lower limb edema. VITAL SIGNS: Her heart rate was 66, blood pressure is 131/47, temperature 97.6, respiratory rate was 16, and oxygen saturation was 98% on room air. HEAD, EYES, EARS, NOSE, AND THROAT: Normocephalic, atraumatic. NECK: Supple. HEART: Showed normal first and second heart sounds, no gallop or murmur. CHEST: Clear to auscultation, no crepitation or rhonchi. ABDOMEN: Distended, soft, nontender, no guarding or rigidity. No organomegaly. All hernial orifice intact. Bowel sounds normal. NEUROLOGIC: She was definitely more awake, alert. All her cranial nerves are intact. She moves extremities without difficulty. Her intake was 820. No output was recorded. LABORATORY DATA: Her lab work as of this morning showed a serum sodium 136, potassium 3.8, chloride 108, bicarbonate 18, anion gap of 10, BUN 21, creatinine 1.6. Estimated GFR was 30 mL per minute. Her glucose was 163, calcium was 7.2. Total bilirubin, AST, ALT, alkaline phosphatase were normal. Total protein was 5.6, albumin 2.1 and lipase was 83. Her alpha fetoprotein was within normal range at 2.4 ng/mL; however, her CA 19-9 was high at 629 units per mL with normal range between 0 to 35. ASSESSMENT: 1. Abdominal pain, mostly in the epigastric area and going through and through to the back with elevated CA 19-[address] scan raised the possibility, she might have a pancreatic neoplasm. 2. Primary biliary cirrhosis with ascites; however, her ascitic fluid was negative for peritonitis. 3. The patient has multiple other medical problems including: A. Hypertension. B. Hyperlipidemia. C. Type 2 diabetes mellitus. D. Chronic kidney disease. E. Chronic obstructive pulmonary disease. PLAN: To continue with current medication. Await the recommendation by the cutting inspector. Apparently, she is not a surgical candidate for any intervention given her age and comorbidities. AUSTYN DR: Es TID: [id number]
[2020-11-08 11:00] VITALS: BP 104/42
--- NOTE | 2020-11-08 11:02 | PDOC ---
Date of Service: DATE: 11/08/20 TIME: 10:54 Subjective: Subjective: Talkative. Brings up past diagnosis of hernia, also wants something done about her hemorrhoids - I asked if they hurt or bleed and she said "well I don't know." Stooled a lot after lactulose. Objective: Objective: Reviewed notes - had some vomiting yesterday, prohibitive surgical candidate. Vital Signs: Vital Signs Date Time Temp Pulse Resp B/P (MAP) Pulse Ox O2 Delivery O2 Flow Rate FiO2 11/08/20 08:40 Room Air 11/08/20 07:00 97.6 66 16 131/47 (75) 98 97.6 Labs: Laboratory Tests Test 11/07/20 11:37 11/07/20 16:54 11/07/20 19:24 11/08/20 06:15 Glucose (Fingerstick) 170 mg/dL 161 mg/dL 169 mg/dL Sodium Level 136 mmol/L Potassium Level 3.8 mmol/L Chloride Level 108 mmol/L Carbon Dioxide Level 18 mmol/L Anion Gap 10 Blood Urea Nitrogen 21 mg/dL Creatinine 1.6 mg/dL Estimated GFR (Cockcroft-Gault) 30.8 BUN/Creatinine Ratio 13 Glucose Level 163 mg/dL Calcium Level 7.2 mg/dL Total Bilirubin 0.8 mg/dL Aspartate Amino Transf (AST/SGOT) 23 U/L Alanine Aminotransferase (ALT/SGPT) 26 U/L Alkaline Phosphatase 98 U/L Total Protein 5.6 g/dL Albumin 2.1 g/dL Albumin/Globulin Ratio 0.6 Lipase 83 U/L Test 11/08/20 07:41 11/08/20 09:50 Glucose (Fingerstick) 158 mg/dL Ammonia 37 mcmol/L GRAM STAIN Final Final NO ORGANISMS SEEN. SQUAMOUS EPI CELL:NOT APPLICABLE PMN (WBCs):NONE SEEN ANAEROBIC-AEROBIC CULTURE Preliminary Preliminary No Growth on 11/06/20 at 0841 No Growth on 11/07/20 at 0856 Imaging: Doppler 11/05 IMPRESSION: 1. Cirrhotic appearance of liver 2. Multiple simple and septated cysts in the liver. 3. No portal vein thrombosis. There is antegrade but slow flow in the main portal vein consistent with portal hypertension. 4. Small volume of ascites, too small to drain. Paracentesis 11/04 0.7L PE: GEN: NAD LUNGS: CTAB HEART: RRR ABD: some ascites, non-tender EXTREMITY: trace edema BLE NEURO/PSYCH: A & O 3, probably some confusion - mild, does discuss issues not relevant to current situation - able to subtract serial 7s A/P: PBC/cirrhosis w/ ascites, encephalopathy Macrocytic anemia (normal B12), thrombocytopenia (stable), hyperammonemia (better) Abnormal CT: indeterminate hepatic lesions, pancreatic neck lesion (cyst vs IPMN), gastric/duodenal and right colonic wall thickening GERD - on PPI CKD, DM -- Elevated C19-9, normal AFP and B12. Ammonia/mentation improved w/ lactulose - adjust for goal of 3-4 stools daily, could also consider Xifaxan. Would continue STACIE diet, observe for recurrent vomiting. Can repeat paracentesis PRN (and also as outpt). Confirmed with Dr. Randolph - we will plan for outpt MRI/MRCP. Justicifation of Admission Dx: Justifications for Admission: Justification of Admission Dx: Yes JEREMIAS MARY Nov 08, 2020 11:02
[2020-11-08 15:00] VITALS: BP 108/45
--- NOTE | 2020-11-08 15:43 | PDOC ---
SURGICAL PROGRESS NOTE DATE: 11/08/20 TIME: 15:41 Subjective Pt tolerating diet and having stools Vital Signs Vital Signs Date Time Temp Pulse Resp B/P (MAP) Pulse Ox O2 Delivery O2 Flow Rate FiO2 11/08/20 13:03 Room Air 11/08/20 11:00 97.9 67 20 104/42 (62) 99 97.9 I&O Intake and Output 11/08/20 07:00 Intake Total 720 ml Output Total 0 ml Balance 720 ml Intake Oral 720 ml Output Urine Total 0 ml # Voids 5 # Bowel Movements 2 General: Alert, Oriented X3, Cooperative, No acute distress Abdomen: Soft, No tenderness Labs Laboratory Tests Test 11/06/20 16:54 11/06/20 19:43 11/06/20 23:00 11/07/20 04:30 Glucose (Fingerstick) 190 mg/dL (70-99) 92 mg/dL (70-99) 179 mg/dL (70-99) White Blood Count 4.2 x10^3/uL (4.0-11.0) Red Blood Count 2.85 x10^6/uL (3.50-5.40) Hemoglobin 9.8 g/dL (12.0-15.5) Hematocrit 29.3 % (36.0-47.0) Mean Corpuscular Volume 103 fL (79-100) Mean Corpuscular Hemoglobin 35 pg (25-35) Mean Corpuscular Hemoglobin Concent 34 g/dL (31-37) Red Cell Distribution Width 14.9 % (11.5-14.5) Platelet Count 115 x10^3/uL (140-400) Sodium Level 136 mmol/L (136-145) Potassium Level 3.9 mmol/L (3.5-5.1) Chloride Level 106 mmol/L (98-107) Carbon Dioxide Level 20 mmol/L (21-32) Anion Gap 10 (6-14) Blood Urea Nitrogen 23 mg/dL (7-20) Creatinine 1.4 mg/dL (0.6-1.0) Estimated GFR (Cockcroft-Gault) 35.9 BUN/Creatinine Ratio 16 (6-20) Glucose Level 182 mg/dL (70-99) Calcium Level 7.4 mg/dL (8.5-10.1) Total Bilirubin 0.5 mg/dL (0.2-1.0) Aspartate Amino Transf (AST/SGOT) 29 U/L (15-37) Alanine Aminotransferase (ALT/SGPT) 25 U/L (14-59) Alkaline Phosphatase 96 U/L (46-116) Ammonia 101 mcmol/L (11-34) Total Protein 5.6 g/dL (6.4-8.2) Albumin 2.1 g/dL (3.4-5.0) Albumin/Globulin Ratio 0.6 (1.0-1.7) Lipase 146 U/L (73-393) Test 11/07/20 11:37 11/07/20 16:54 11/07/20 19:24 11/08/20 06:15 Glucose (Fingerstick) 170 mg/dL (70-99) 161 mg/dL (70-99) 169 mg/dL (70-99) Sodium Level 136 mmol/L (136-145) Potassium Level 3.8 mmol/L (3.5-5.1) Chloride Level 108 mmol/L (98-107) Carbon Dioxide Level 18 mmol/L (21-32) Anion Gap 10 (6-14) Blood Urea Nitrogen 21 mg/dL (7-20) Creatinine 1.6 mg/dL (0.6-1.0) Estimated GFR (Cockcroft-Gault) 30.8 BUN/Creatinine Ratio 13 (6-20) Glucose Level 163 mg/dL (70-99) Calcium Level 7.2 mg/dL (8.5-10.1) Total Bilirubin 0.8 mg/dL (0.2-1.0) Aspartate Amino Transf (AST/SGOT) 23 U/L (15-37) Alanine Aminotransferase (ALT/SGPT) 26 U/L (14-59) Alkaline Phosphatase 98 U/L (46-116) Total Protein 5.6 g/dL (6.4-8.2) Albumin 2.1 g/dL (3.4-5.0) Albumin/Globulin Ratio 0.6 (1.0-1.7) Lipase 83 U/L (73-393) Test 11/08/20 07:41 11/08/20 09:50 11/08/20 12:15 Glucose (Fingerstick) 158 mg/dL (70-99) 158 mg/dL (70-99) Ammonia 37 mcmol/L (11-34) Laboratory Tests Test 11/07/20 16:54 11/07/20 19:24 11/08/20 06:15 11/08/20 07:41 Glucose (Fingerstick) 161 mg/dL (70-99) 169 mg/dL (70-99) 158 mg/dL (70-99) Sodium Level 136 mmol/L (136-145) Potassium Level 3.8 mmol/L (3.5-5.1) Chloride Level 108 mmol/L (98-107) Carbon Dioxide Level 18 mmol/L (21-32) Anion Gap 10 (6-14) Blood Urea Nitrogen 21 mg/dL (7-20) Creatinine 1.6 mg/dL (0.6-1.0) Estimated GFR (Cockcroft-Gault) 30.8 BUN/Creatinine Ratio 13 (6-20) Glucose Level 163 mg/dL (70-99) Calcium Level 7.2 mg/dL (8.5-10.1) Total Bilirubin 0.8 mg/dL (0.2-1.0) Aspartate Amino Transf (AST/SGOT) 23 U/L (15-37) Alanine Aminotransferase (ALT/SGPT) 26 U/L (14-59) Alkaline Phosphatase 98 U/L (46-116) Total Protein 5.6 g/dL (6.4-8.2) Albumin 2.1 g/dL (3.4-5.0) Albumin/Globulin Ratio 0.6 (1.0-1.7) Lipase 83 U/L (73-393) Test 11/08/20 09:50 11/08/20 12:15 Ammonia 37 mcmol/L (11-34) Glucose (Fingerstick) 158 mg/dL (70-99) Problem List cirrhosis, pancreatic and liver masses cont per GI no surgical plans as pt is prohibitive surgical candidate, given severe cirrhosis would favor against surgical repair of hemorrhoids given cirrhosis will sign off, but please call for questions. Justicifation of Admission Dx: Justifications for Admission: Justification of Admission Dx: Yes IVIS MARTIN MD Nov 08, 2020 15:43
[2020-11-08] MEDS: CHOLECALCIFEROL (VITAMIN D3) 1,000 UNIT TABLET PO SCH (17:27)
[2020-11-08] MEDS: ASCORBIC ACID 1,000 MG TABLET PO SCH (17:27)
[2020-11-08 19:00] VITALS: BP 102/57
[2020-11-08 23:23] VITALS: BP 115/51
[2020-11-09 03:00] VITALS: BP 102/39
[2020-11-09] MEDS: LEVOTHYROXINE 88 MCG TABLET PO SCH (06:25)
[2020-11-09 07:00] VITALS: BP 100/44
[2020-11-09] MEDS: PANTOPRAZOLE 40 MG TABLET.DR. PO SCH (07:30)
[2020-11-09] MEDS: ALBUTEROL SULFATE 2.5 MG/3 ML NEBU. NEB SCH ×2 (07:36→13:12)
[2020-11-09] MEDS: INSULIN LISPRO 300 UNITS/3 ML VIAL. SQ SCH ×2 (08:00→12:00)
[2020-11-09] MEDS: URSODIOL 300 MG CAPSULE. PO SCH (08:42)
[2020-11-09] MEDS: LACTULOSE 20 GM/30 ML SOLUTION. PO SCH (08:43)
--- NOTE | 2020-11-09 10:07 | SNU/HH DC ---
DISCHARGE ORDERS DISCHARGE INFORMATION: DISCHARGE DATE: Nov 09, 2020 FINAL DIAGNOSIS liver cirrhosis portal hypertension pancreatic neoplasm CONDITION ON DISCHARGE: Stable CODE STATUS: Code Status: Full LONG TERM: SNF STAY <30 DAYS: Yes POST DISCHARGE ORDERS: ACTIVITY ORDERS: Activity as tolerated WEIGHT BEARING STATUS: As tolerated DIET AFTER DISCHARGE: ADA TREATMENT/EQUIPMENT ORDERS: Physical Therapy For: Evalulation/Treatment Occupational Therapy For: Evaluation/Treatment DISCHARGE MEDICATIONS: Home Meds Reported Medications Levothyroxine Sodium (Levo-T) 88 Mcg Tablet, 1 TAB PO DAILY for hypothyroid for 30 Days, #30 TAB 0 Refills 11/05/20 Ondansetron Hcl (ZOFRAN) 4 Mg Tablet, 1 TAB PO PRN Q6-8HRS for nausea/vomiting, #5 TAB 11/04/20 Cholecalciferol (Vitamin D3) (Vitamin D3 ) 25 Mcg Tablet, 50 MCG PO DAILYWSUP for SUPPLEMENT, TAB 1,000 UNITS = 25 MCG 11/04/20 Ursodiol (RONY FORTE) 500 Mg Tablet, 1 TAB PO BID for liver cirrhosis for 30 Days, #60 TAB 0 Refills 11/04/20 Tramadol Hcl (TRAMADOL HCL) 50 Mg Tablet, 50 MG PO PRN Q8HRS PRN for PAIN, TAB 11/04/20 Sodium Chloride (SALINE NASAL SPRAY) 30 Ml [place], 2 SPRAY NS PRN DAILY PRN for CONGESTION, #60 ML 11/04/20 Polyvinyl Alcohol (POLYVINYL ALCOHOL) 15 Ml Drops, 15 ML OP PRN Q15MIN PRN for DRY EYE, DROP 11/04/20 Pantoprazole Sodium (PROTONIX ) 40 Mg Tablet.dr, 40 MG PO DAILYAC for GERD, TAB 11/04/20 Lactulose (LACTULOSE) 20 Gm/30 Ml Solution, 30 GM PO DAILY for elevated ammonia levels, MISC 11/04/20 Hydrocortisone (ANUSOL-HC) 30 Gm Cream..g., 30 GM RC PRN BID PRN for RASH, EACH 11/04/20 Insulin Lispro (HUMALOG) 100 Unit/1 Ml Vial, 8 UNIT SQ TIDWMEALS for diabetes type 2, EACH 11/04/20 Ascorbic Acid (Vitamin C) 500 Mg Capsule, 1000 MG PO DAILYWSUP for supplement, CAP 11/04/20 Albuterol Sulfate (ALBUTEROL SULFATE NEB SOLN) 2.5 Mg/3 Ml Vial.neb, 2.5 MG NEB TID for FOR ASTHMA, EACH 0 Refills 11/04/20 Insulin Glargine,Hum.rec.anlog (LANTUS SOLOSTAR) 100 Unit/1 Ml Insuln.pen, 8 UNITS SQ HS for diabetes type 2, #30 09/18/15 ASHLEY JI MD Nov 09, 2020 10:07
--- NOTE | 2020-11-09 10:07 | PDOC2 ---
CONSULT Date of Consult Date of Consult DATE: 11/09/20 TIME: 09:52 Reason for Consult Reason for Consult: Pancreatic mass. Elevated CA 19-9 Referring Physician Referring Physician: Dr. Boothe Identification/Chief Complaint Chief Complaint Abdominal distention Source Source: Caregiver, Chart review History of Present Illness Reason for Visit: Ms. Jung is an 85-year-old female with history of primary biliary cirrhosis and sidebranch IPMN who has been admitted to [facility] with worsening abdominal distention. She is currently a resident of [facility]. She has required more frequent paracentesis recently due to recurrent ascites. She has also developed hepatic encephalopathy and has been admitted to [facility] for further management. She underwent a therapeutic paracentesis with improvement in abdominal distention. She also received a CT abdomen during current hospital stay which showed cirrhotic morphology of liver with few indeterminate tubular shaped hypodense lesions in the right hepatic lobe, the largest of which measures up to 6.2 cm. Additional, indeterminate 1.3 cm hypodense lesion in subcapsular hepatic segment 6. In addition, a lobulated hypodense lesion in the pancreatic neck measuring up to 2.1 cm was also noted. CA 19-9 was checked and returned elevated at 629. Medical oncology consultation has been sought for recommendations regarding further evaluation Patient reports that she was aware of the presence of pancreatic lesion in the past. She reports she followed at GI at [facility]. 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 She received 2 fine-needle aspirations guided by EUS, in 2012 and 2013, both of which did not show malignancy. Surveillance radiographically since then has shown stable findings. MRI was recommended at her most recent office visit in GI in 2019. The patient subsequently chose to transfer care to [facility]. She has also been found to have primary biliary cirrhosis with dilated intrahepatic biliary ducts. Patient reports that she has significant claustrophobia. She also states that she is interested in obtaining an MRI despite having some concerns regarding claustrophobia. She states that she would like to know additional details regarding whether or not she has pancreatic cancer since she plans on making end-of-life plans Past Medical History Cardiovascular: HTN, Hyperlipidemia Pulmonary: COPD, Other CENTRAL NERVOUS SYSTEM: Periperal neuropathy, Other GI: GERD, Other Hepatobiliary: Other Psych: No pertinent hx Musculoskeletal: low back pain, Osteoarthritis Rheumatologic: No pertinent hx Renal/: Chronic renal insuff Endocrine: Diabetes, Hypothyroidism Past Surgical History Past Surgical History: Appendectomy, Cholecystectomy, Tonsillectomy, Hysterectomy, Other Family History Family History: Heart Disease Social History No ALCOHOL: none Drugs: None Lives: with Family Current Medications Current Medications Current Medications Albuterol Sulfate (Ventolin Neb Soln) 2.5 mg TID NEB Last administered on 11/09/20at 07:36; Start 11/04/20 at 21:00 Vitamin D (Vitamin D3) 2,000 unit DAILYWSUP PO Last administered on 11/08/20at 17:27; Start 11/05/20 at 17:00 Hydrocortisone (Proctosol-Hc) 30 sami PRN BID PRN RC rectal pain; Start 11/04/20 at 18:15 Insulin Human Lispro (HumaLOG) 8 units TIDWMEALS SQ Last administered on 11/07/20at 08:53; Start 11/05/20 at 08:00; Stop 11/07/20 at 12:06; Status DC Lactulose (Lactulose) 30 gm DAILY PO Last administered on 11/05/20at 08:25; Start 11/05/20 at 09:00; Stop 11/06/20 at 09:11; Status DC Pantoprazole Sodium (Protonix) 40 mg DAILYAC PO Last administered on 11/09/20at 07:30; Start 11/05/20 at 07:30 Sodium Chloride (Saline Mist Nasal) 1 sami PRN DAILY PRN NS CONGESTION; Start 11/04/20 at 18:15 Tramadol HCl (Ultram) 50 mg PRN Q8HRS PRN PO PAIN Last administered on 11/07/20at 08:37; Start 11/04/20 at 18:15 Ascorbic Acid (Vitamin C) 1,000 mg DAILYWSUP PO Last administered on 11/08/20at 17:27; Start 11/05/20 at 17:00 Ondansetron HCl (Zofran Odt) 4 mg PRN Q8HRS PRN PO NAUSEA/VOMITING; Start 11/04/20 at 18:30 Glycerin/ Hypromellose/ Polyethylene (Artificial Tears) 1 drop PRN Q15MIN PRN OU DRY EYE; Start 11/04/20 at 18:30 Ursodiol (Actigall) 300 mg BID PO Last administered on 11/09/20at 08:42; Start 11/04/20 at 21:00 Levothyroxine Sodium (Synthroid) 88 mcg DAILY06 PO Last administered on 11/09/20at 06:25; Start 11/06/20 at 06:00 Lactulose (Lactulose) 30 gm BID PO Last administered on 11/07/20at 08:38; Start 11/06/20 at 09:30; Stop 11/07/20 at 09:57; Status DC Lactulose (Lactulose) 30 gm QID PO Last administered on 11/08/20at 09:26; Start 11/07/20 at 10:00; Stop 11/08/20 at 12:49; Status DC Ondansetron HCl (Zofran) 4 mg PRN Q6HRS PRN IVP NAUSEA/VOMITING Last administered on 11/07/20at 10:59; Start 11/07/20 at 10:00 Fentanyl Citrate (Fentanyl 2ml Vial) 50 mcg PRN Q4HRS PRN IVP PAIN; Start 11/07/20 at 10:00 Insulin Human Lispro (HumaLOG) 0-5 UNITS TIDWMEALS SQ Last administered on 11/09/20at 08:00; Start 11/07/20 at 17:00 Dextrose (Dextrose 50%-Water Syringe) 12.5 gm PRN Q15MIN PRN IV SEE COMMENTS; Start 11/07/20 at 12:15 Lactulose (Lactulose) 30 gm BID PO Last administered on 11/09/20at 08:43; Start 11/08/20 at 21:00 Active Scripts Active Reported Levo-T (Levothyroxine Sodium) 88 Mcg Tablet 1 Tab PO DAILY 30 Days Zofran (Ondansetron Hcl) 4 Mg Tablet 1 Tab PO PRN Q6-8HRS Vitamin D3 (Vitamin D) 25 Mcg Tablet 50 Mcg PO DAILYWSUP 1,000 UNITS = 25 MCG [place] (Ursodiol) 500 Mg Tablet 1 Tab PO BID 30 Days Tramadol Hcl 50 Mg Tablet 50 Mg PO PRN Q8HRS PRN Saline Nasal [place] (Sodium Chloride) 30 Ml [place] 2 [place] NS PRN DAILY PRN Polyvinyl Alcohol 15 Ml Drops 15 Ml OP PRN Q15MIN PRN Protonix (Pantoprazole Sodium) 40 Mg Tablet.dr 40 Mg PO DAILYAC Lactulose 20 Gm/30 Ml Solution 30 Gm PO DAILY Anusol-Hc (Hydrocortisone) 30 Gm Cream..g. 30 Gm RC PRN BID PRN Humalog (Insulin Lispro) 100 Unit/1 Ml Vial 8 Unit SQ TIDWMEALS Vitamin C (Ascorbic Acid) 500 Mg Capsule 1,000 Mg PO DAILYWSUP Albuterol Sulfate Neb Soln (Albuterol Sulfate) 2.5 Mg/3 Ml Vial.neb 2.5 Mg NEB TID Lantus Solostar (Insulin Glargine,Hum.rec.anlog) 100 Unit/1 Ml Insuln.pen 8 Units SQ HS Allergies Allergies: Coded Allergies: Corticosteroids (Glucocorticoids) (Verified Allergy, Intermediate, HAND SWELLING, 09/21/15) Penicillins (Verified Allergy, Intermediate, 09/18/15) Sulfa (Sulfonamide Antibiotics) (Verified Allergy, Intermediate, 09/18/15) Tetracyclines (Verified Allergy, Intermediate, 09/18/15) amitriptyline (Verified Allergy, Intermediate, 09/18/15) benzonatate (Verified Allergy, Intermediate, 09/18/15) diazepam (Verified Allergy, Intermediate, 09/18/15) hydrochlorothiazide (Verified Allergy, Intermediate, 09/18/15) iodine (Verified Allergy, Intermediate, 09/18/15) meperidine (Verified Allergy, Intermediate, 09/18/15) oxycodone (Verified Allergy, Intermediate, 09/18/15) prednisone (Verified Allergy, Intermediate, HANDS, FEET SWELLING, 11/07/20) propoxyphene (Verified Allergy, Intermediate, 09/18/15) triamterene (Verified Allergy, Intermediate, 09/18/15) Ssomsuj-Rbu-Owz Reductase Inhibitor (Verified Adverse Reaction, Interme diate, muscle aches, 11/07/20) acetaminophen (Verified Adverse Reaction, Intermediate, 09/18/15) sleepy codeine (Verified Adverse Reaction, Intermediate, liver, 11/05/20) hydrocodone (Verified Adverse Reaction, Intermediate, hallucinations, 11/07/20) levofloxacin (Verified Adverse Reaction, Intermediate, dizzy, stomach ache, 11/07/20) lisinopril (Verified Adverse Reaction, Intermediate, COUGH, 11/07/20) moxifloxacin (Verified Adverse Reaction, Intermediate, 09/18/15) stomach pain naproxen (Verified Adverse Reaction, Intermediate, liver, 09/18/15) prochlorperazine (Verified Adverse Reaction, Intermediate, hallucination, 09/18/15) ROS Review of System Negative unless stated otherwise in HPI Physical Exam Physical Exam General: Awake, alert, no distress Head: Atraumatic, no conjunctival icterus, normal oral cavity mucosa Neck: Supple, no lymphadenopathy Chest: No trauma noted Cardiovascular: Regular rhythm, normal rate, no murmurs Respiratory: Bilateral air entry noted, lungs clear to auscultation bilaterally. No accessory muscle use Abdominal: Abdomen is soft, nontender, nondistended. Bowel sounds were normal. No hepatomegaly or splenomegaly Musculoskeletal: No deformity noted Extremities: No edema noted Skin: No rash or lesions Neurologic: Alert and oriented x3, no grossly evident neurologic deficits noted. Full neurological exam was not performed Psychiatric: Appropriate mood and affect Vitals VITALS Vital Signs Date Time Temp Pulse Resp B/P (MAP) Pulse Ox O2 Delivery O2 Flow Rate FiO2 11/09/20 07:36 93 Room Air 11/09/20 07:00 97.9 79 20 100/44 (62) 97.9 Labs Labs Laboratory Tests Test 11/07/20 11:37 11/07/20 16:54 11/07/20 19:24 11/08/20 06:15 Glucose (Fingerstick) 170 mg/dL (70-99) 161 mg/dL (70-99) 169 mg/dL (70-99) Sodium Level 136 mmol/L (136-145) Potassium Level 3.8 mmol/L (3.5-5.1) Chloride Level 108 mmol/L (98-107) Carbon Dioxide Level 18 mmol/L (21-32) Anion Gap 10 (6-14) Blood Urea Nitrogen 21 mg/dL (7-20) Creatinine 1.6 mg/dL (0.6-1.0) Estimated GFR (Cockcroft-Gault) 30.8 BUN/Creatinine Ratio 13 (6-20) Glucose Level 163 mg/dL (70-99) Calcium Level 7.2 mg/dL (8.5-10.1) Total Bilirubin 0.8 mg/dL (0.2-1.0) Aspartate Amino Transf (AST/SGOT) 23 U/L (15-37) Alanine Aminotransferase (ALT/SGPT) 26 U/L (14-59) Alkaline Phosphatase 98 U/L (46-116) Total Protein 5.6 g/dL (6.4-8.2) Albumin 2.1 g/dL (3.4-5.0) Albumin/Globulin Ratio 0.6 (1.0-1.7) Lipase 83 U/L (73-393) Test 11/08/20 07:41 11/08/20 09:50 11/08/20 12:15 11/08/20 17:07 Glucose (Fingerstick) 158 mg/dL (70-99) 158 mg/dL (70-99) 209 mg/dL (70-99) Ammonia 37 mcmol/L (11-34) Test 11/08/20 20:46 11/09/20 07:12 Glucose (Fingerstick) 211 mg/dL (70-99) 166 mg/dL (70-99) Laboratory Tests Test 11/08/20 12:15 11/08/20 17:07 11/08/20 20:46 11/09/20 07:12 Glucose (Fingerstick) 158 mg/dL (70-99) 209 mg/dL (70-99) 211 mg/dL (70-99) 166 mg/dL (70-99) Assessment/Plan Assessment/Plan Assessment: Primary biliary cirrhosis Pancreatic sidebranch IPMN Ascites secondary to decompensated cirrhosis 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 This was also recommended at her last office visit at . I discussed with the patient that given advanced cirrhosis, any treatment options available would be limited and unlikely to be curative if malignant process is diagnosed based on the above-mentioned evaluation. She has been seen by Dr. Bustillo who has indicated that surgical intervention would not be offered due to high perioperative mortality risk -Can pursue MRI inpatient versus outpatient. Will defer to Dr. Boothe. -Patient was provided contact information for my office to arrange outpatient follow-up based on results of MRI Kenan Quevedo MD Medical Oncology/Hematology Ph: [phone] SY QUEVEDO MD Nov 09, 2020 10:07
--- NOTE | 2020-11-09 10:08 | PATHOLOGY ---
Note [facility] Accession Number: [id number] TESTS RESULT FLAG UNITS REF RANGE LAB Clinician Provided Cytology Information No. of containers..01 Other (Miscellaneous) Source: ASCITES DIAGNOSIS: 02 ASCITES NEGATIVE FOR MALIGNANT CELLS. FOCALLY REACTIVE MESOTHELIAL CELLS AND CHRONIC INFLAMMATORY CELLS PRESENT. Signed out by: 02 Billy Garsia MD, Pathologist NPI- [id number] Performed by: Maryam Llamas, Postage Machine Operator ([facility]) Gross description: 01 30ML, CLEAR YELLOW, 1 TP 1 CB /LCS 11/06/2020 0323 Local FLAG LEGEND: L-Low Normal,H-High Normal,LL-Alert Low,HH-Alert High <-Panic Low,>-Panic High,A-Abnormal,AA-Critical Abnormal Performed at: [address] [place] [address] Eric Jacobson MD, 02 [facility] [address] [place] [address] Billy Garsia MD, Specimen Comment: A courtesy copy of this report has been sent to [phone] Specimen Comment: Report sent to / DR PALAFOX Specimen Comment: A duplicate report has been generated due to demographic updates. Performed at: [address], [place], [place] [id number] MD Eric Jacobson MD Phone: [phone]
--- NOTE | 2020-11-09 10:44 | PDOC ---
Date of Service: DATE: 11/09/20 TIME: 10:39 Subjective: Subjective: Feels okay. Has questions about MRI as outpt - wants "open." New information today: "[facility] told me I had cancer cells in my pancreas. They drained 2 or 3 of them. They didn't tell me anything except that I'd bleed to ." present - ?cyst drainage? Objective: Objective: Lots of records from [facility] - pancreatic cysts mentioned. Vital Signs: Vital Signs Date Time Temp Pulse Resp B/P (MAP) Pulse Ox O2 Delivery O2 Flow Rate FiO2 11/09/20 08:00 Room Air 11/09/20 07:36 93 11/09/20 07:00 97.9 79 20 100/44 (62) 97.9 Labs: Laboratory Tests Test 11/08/20 12:15 11/08/20 17:07 11/08/20 20:46 11/09/20 07:12 Glucose (Fingerstick) 158 mg/dL 209 mg/dL 211 mg/dL 166 mg/dL DIAGNOSIS: 02 ASCITES NEGATIVE FOR MALIGNANT CELLS. FOCALLY REACTIVE MESOTHELIAL CELLS AND CHRONIC INFLAMMATORY CELLS PRESENT. PE: GEN: NAD LUNGS: CTAB HEART: RRR ABD: some ascites EXTREMITY: trace edema NEURO/PSYCH: A & O 3 A/P: PBC/cirrhosis w/ ascites and encephalopathy Hepatic lesions, pancreatic neck lesion w/ elevated CA19-9 CKD -- Not forthcoming with complete history. Apparently has had some sort of pancreatic workup in the past. DC per primary on lactulose. Plan for outpt MRI/MRCP, possible EUS/FNA (not able to do here). Our office can help arrange. Justicifation of Admission Dx: Justifications for Admission: Justification of Admission Dx: Yes JEREMIAS MARY Nov 09, 2020 10:44
[2020-11-09 11:00] VITALS: BP 106/54
--- NOTE | 2020-11-09 12:16 | NUR ---
DUSTY following. Discussed with RN, discharge orders faxed to [place], awaiting transportation time. DUSTY will continue to follow. Addendum: 11/09/20 at 1620 by MAXIM MONTANO Transportation arranged for between [id number]. RN notified.
[2020-11-09 15:00] VITALS: BP 98/44
--- NOTE | 2020-11-09 17:18 | NUR ---
Pt was read discharge packet/instructions and had no questions. IV was taken out, heart monitor taken off. Pt was stable when leaving unit.
== END 2020-11-09 16:45 | DRG 432 ==
LOC: 6 SOUTH 17:22
PROVIDERS: ADMIT Internal Medicine; ATTEND Internal Medicine
PROC: 0W9G3ZZ Drainage of Peritoneal Cavity, Percutaneous Approach (ICD-10-PCS; principal; 2020-11-05)
DX: K74.3 Primary biliary cirrhosis (principal); E43 Unspecified severe protein-calorie malnutrition; D68.9 Coagulation defect, unspecified; R18.8 Other ascites; D72.819 Decreased white blood cell count, unspecified; K72.90 Hepatic failure, unspecified without coma; Z90.49 Acquired absence of other specified parts of digestive tract; Z98.891 History of uterine scar from previous surgery; Z90.710 Acquired absence of both cervix and uterus; E11.22 Type 2 diabetes mellitus with diabetic chronic kidney disease; E78.5 Hyperlipidemia, unspecified; I12.9 Hypertensive chronic kidney disease with stage 1 through stage 4 chronic kidney disease, or unspecified chronic kidney disease; N18.9 Chronic kidney disease, unspecified; J44.9 Chronic obstructive pulmonary disease, unspecified; Z98.42 Cataract extraction status, left eye; Z98.41 Cataract extraction status, right eye; Z88.8 Allergy status to other drugs, medicaments and biological substances; Z88.0 Allergy status to penicillin; Z88.2 Allergy status to sulfonamides; Z88.1 Allergy status to other antibiotic agents; K21.9 Gastro-esophageal reflux disease without esophagitis; D53.9 Nutritional anemia, unspecified; D69.6 Thrombocytopenia, unspecified; R16.0 Hepatomegaly, not elsewhere classified; E03.9 Hypothyroidism, unspecified; Z68.24 Body mass index [BMI] 24.0-24.9, adult
CPT/HCPCS: 36415; 49083; 74176; 80053; 82105; 82140; 82607; 82945; 82962; 83540; 83550; 83605; 83690; 84157; 85025; 85027; 85610; 86301; 87071; 87075; 88112; 88305; 89050; 93976; 94640; 94760; J1815; J2405; 97116-GP; G0378; J7613

== ENCOUNTER → 2020-11-23 | Outpatient (CLI) | payer MEDICARE ==
[2020-11-09 15:00] VITALS: BP 98/44
[~2020-11-23] MED LIST changes: +ALBU2.5V5 NEB; +ASCO500C9 PO; +CHOL10004 PO; +HYDR30CR61 RC; +INSU100V6 SQ; +LACT20SO PO; +LEVO88TA51 PO; +ONDA4TAB7 PO; +POLY15DR20 OP; +SODI30SP NS; +TRAM50TA PO; +URSO500T3 PO
--- NOTE | 2020-11-23 16:28 | RAD ---
EXAM: MRI ABDOMEN WITHOUT CONTRAST. HISTORY: Pancreatitis mass. TECHNIQUE: MRI of the abdomen was performed without intravenous contrast. Three-dimensional reconstru ctions of the biliary tree were also performed. COMPARISON: 11/05/2020. FINDINGS: Liver: Hepatic surface nodularity is consistent with cirrhotic change. There is no significant steato sis. There are no clear suspicious hepatic lesions without contrast. Biliary tree: The gallbladder is surgically absent. The common duct is not dilated. There is multifoc al peripheral intrahepatic biliary dilatation. No focal biliary mass is appreciable. The largest dila saundra ducts are posteriorly in the right lobe measuring up to 1.7 cm in diameter. Innumerable cystic lesions throughout the pancreas most likely reflect side branch intraductal papill juan pablo mucinous neoplasms. The largest in the pancreatic head measures up to 1.9 x 1.3 cm. Several other s are of similar size, while many are subcentimeter.. The pancreatic duct is somewhat irregular but n ot dilated. No solid pancreatic parenchymal lesion is identified. Other findings: The spleen is mildly enlarged at 13.6 cm. Small renal cysts appear benign. The adrena l glands are unremarkable. There is moderate to large ascites. There is a small left pleural effusion . IMPRESSION: 1. 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 2. Morphologic changes of cirrhosis. No suspicious hepatic lesions or biliary masses are identified w ithout contrast. 3. 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 No clearly suspicious pancreatic lesions without contrast. Postcontrast analysis could further evaluate. Otherwise, follow-up is suggested in 6 months. 4. Moderate to large ascites. Small left pleural effusion. Electronically signed by: Arash Johansen MD (11/23/2020 4:25 PM) [id number]
== END ==
LOC: MRI 09:03
PROVIDERS: ATTEND Internal Medicine
DX: K86.89 Other specified diseases of pancreas (principal); R16.1 Splenomegaly, not elsewhere classified; K74.60 Unspecified cirrhosis of liver; N28.1 Cyst of kidney, acquired; R18.8 Other ascites; J90 Pleural effusion, not elsewhere classified
CPT/HCPCS: 74181

== ENCOUNTER → 2020-12-02 | Outpatient (CLI) | payer MEDICARE ==
[2020-11-09 15:00] VITALS: BP 98/44
[2020-12-02 13:48] LABS: BASO % 0 % (0-3); EOS # 0.1 x10^3/uL (0.0-0.7); EOS % 2 % (0-3); HEMOGLOBIN 11.6 g/dL (12.0-15.5); LYMPH # 1.1 x10^3/uL (1.0-4.8); LYMPH % 18 % (24-48); MEAN CORPUSCULAR HEMOGLOBIN 34 pg (25-35); MEAN CORPUSCULAR HGB CONC 33 g/dL (31-37); MEAN CORPUSCULAR VOLUME 103 fL (79-100); MONO # 0.3 x10^3/uL (0.0-1.1); MONO % 5 % (0-9); NEUT # 4.4 x10^3/uL (1.8-7.7); NEUT % 75 % (31-73); PLATELET COUNT 147 x10^3/uL (140-400); RED BLOOD COUNT 3.41 x10^6/uL (3.50-5.40); RED CELL DISTRIBUTION WIDTH 14.2 % (11.5-14.5); WHITE BLOOD COUNT 5.9 x10^3/uL (4.0-11.0)
[2020-12-02 14:01] LABS: CALCIUM 7.9 mg/dL (8.5-10.1); CREATININE 1.6 mg/dL (0.6-1.0); GFR 30.8; POTASSIUM 3.3 mmol/L (3.5-5.1)
[2020-12-02 14:07] LABS: ALBUMIN 2.4 g/dL (3.4-5.0); ALBUMIN/GLOBULIN RATIO 0.6 (1.0-1.7); TOTAL BILIRUBIN 0.7 mg/dL (0.2-1.0); TOTAL PROTEIN 6.2 g/dL (6.4-8.2)
== END ==
LOC: ONCLAB 13:29
PROVIDERS: ATTEND Internal Medicine Hematology & Oncology
DX: K83.01 Primary sclerosing cholangitis (principal)
CPT/HCPCS: 36415; 80053; 82140; 85025